=== PATIENT | female | born 1985 | race Caucasian/White ===

== ENCOUNTER 2023-09-01 21:00 | Inpatient (IN) ==
--- NOTE | 2023-09-01 21:20 | Emergency Department Note ---
Impression & Plan Cecal volvulus, Abdominal pain, Leukocytosis ED Provider Note NAME: BERE QUEVEDO AGE: 37 SEX: F : 1985 ARRIVES VIA: Walk-In INFORMANT: Patient ED PROVIDER(S): Tramaine Wright DO CHIEF COMPLAINT: abdominal pain HPI: Patient is a 29-year-old female with a past medical history of MS and constipation who presents the ER for abdominal pain. Pain is located in the left lower quadrant. It started last night and associated with nausea. She has been having some trouble going to the bathroom. Last bowel movement was yesterday but she notes that she feels very regular. She denies any dysuria urgency or frequency. Admits to a history of previous UTIs but notes that this feels different. No fevers. Patient notes that symptoms have been getting worse and consequently she came back in. Additional history obtained from mother and father who notes that the patient did receive antibiotics and a Velásquez from this morning. She also received an enema. ADDITIONAL HISTORY OBTAINED: Per HPI Chronic Medical/Social Conditions Affecting Care: Per HPI PAST MEDICAL HISTORY:See Below PAST SURGICAL HISTORY:See Below FAMILY HISTORY:See Below SOCIAL HISTORY:See Below HOME MEDICATIONS:See Below ALLERGIES:See Below VITALS:See Below PHYSICAL EXAMINATION: GENERAL: Sitting up in bed, alert, cachectic, vomiting EYE EXAM: normal conjunctiva. OROPHARYNX: mucous membranes are moist NECK: supple, no nuchal rigidity, no adenopathy, non-tender LUNGS: Clear to auscultation. Normal chest wall mechanics HEART: no murmurs, S1 normal and S2 normal ABDOMEN: abdomen soft, TTP in LLQ, +BS, +guarding UPPER EXTREMITIES: upper extremities are grossly normal. LOWER EXTREMITIES: No pitting edema. NEURO EXAM: Normal sensorium, cranial nerves II-XII grossly intact, normal speech, no gross weakness of arms, no gross weakness of legs. MEDICAL DECISION MAKING: Patient is a 37 is a 37-year-old female who presents the ER for the above-stated complaint. IV was established blood work was obtained. Blood work was reviewed from earlier today. Patient has guarding and significant pain on exam and consequently she was taking immediately to CT following blood work. Labs show leukocytosis of 27,000 which is significantly increased from earlier today. Hemoglobin is 16 likely secondary to dehydration from the vomiting. BMP along with LFTs bilirubin was unremarkable. Lipase was normal. UA was reviewed from earlier today and although it was nitrite positive there is no white cells. I do not feel this consistent with a UTI. CT does suggest a possible volvulus per radiology. Discussed with gastroenterology and Dr. Jasso. Dr. Jasso notes that he will likely take her to the OR after evaluation at bedside. I did notify Dr. Blanco. Patient was given morphine and Zofran. She is resting comfortably. She was ordered 2 L of IV fluids. Please see the hospitalist and general surgeon's note for further treatment. Consults/Care Managements Discussions: Per [facility] Triage Nursing notes reviewed. Limited review of prior medical records performed Vital Signs: reviewed and remarkable for no significant abnormalities Differential diagnosis: Differential diagnoses includes but is not limited to gastritis, peptic ulcer disease, GERD, gallbladder disease, pancreatitis, small bowel obstruction, appendicitis, diverticulitis, hernia, urinary tract infection, torsion, /ectopic (if female), perforation, trauma, infectious. ER treatment provided: See below Diagnostics interpreted by me include EKG and cardiac monitoring as listed below: -Cardiac Monitoring: An order was placed for continuous cardiac monitoring. The monitor shows a rate of 90 with sinus rhythm. -ECG: none -Laboratory studies:Interpreted by me as stated above in MDM and shown below. Imaging studies: Xrays: As interpreted by me:none CTs show: CT abdomen pelvis per my preliminary interpretation showed distention within the large bowel CT abdomen pelvis per radiology as described above Procedures:none Critical Care: I have personally spent 40 minutes of critical care time in the direct management of this patient. This includes bedside care, interpretation of diagnostic studies, and testing, discussion with consultants, patient, and family members, and other required patient management activities. This 40 minutes is in excess of all separately billable procedures. Past Med/Surg History Medical History Multiple sclerosis PTSD (post-traumatic stress disorder) Anxiety Depression Surgical History Hx of wisdom tooth extraction History of endometrial ablation Hx of tubal ligation Social History Smoking Status: Former smoker Do You Dip or Chew Tobacco: No; Hx Alcohol Use: No Hx Substance Use: No Preferred Language: Surinamese Communication Ability: Effective Personal Care Aid Required: No Beliefs That Will Affect Care: None Current Living Situation: Spouse Feels Safe at Home: Yes Assistive Devices: Cane, Glasses, Walker and Wheelchair Allergies Allergies Allergy/AdvReac Type Severity Reaction Status Date / Time Sulfa (Sulfonamide Allergy Severe Hives Verified 09/01/23 08:20 Antibiotics) gabapentin Allergy Intermediate Hives Verified 09/01/23 08:20 Influenza Virus Vaccines Allergy Intermediate Rash Verified 09/01/23 08:20 Home Meds Home Medications Medication Instructions Recorded Confirmed ascorbic acid (vitamin C) 100 mg 100 mg PO DAILY 09/12/22 09/01/23 tablet (Vitamin C) cholecalciferol (vitamin D3) 100 1,000 unit PO DAILY 09/12/22 09/01/23 mcg (4,000 unit) capsule docusate sodium 100 mg capsule 100 mg PO DAILY 09/12/22 09/01/23 (Colace) meclizine 12.5 mg tablet 12.5 mg PO BID PRN Nausea 09/12/22 09/01/23 zinc 100 mg tablet 100 mg PO DAILY 09/12/22 09/01/23 digestive enzymes 1 tab PO DAILY 08/13/23 09/01/23 magnesium gluconate 27 mg 27 mg PO BID 08/13/23 09/01/23 magnesium (500 mg) tablet (Mag-G) omega-3 fatty acids 1,000 mg 1,000 mg PO DAILY 08/13/23 09/01/23 capsule (Super Gifford-3) Previous Rx's Medication Instructions Recorded mirabegron 50 mg tablet,extended 50 mg PO DAILY #90 tabs 03/27/23 release 24 hr (Myrbetriq) cefdinir 300 mg capsule 300 mg PO Q12H 7 days #14 caps 09/01/23 ondansetron 4 mg disintegrating 4 mg PO Q12H PRN nausea and 09/01/23 tablet vomiting 3 days #9 tabs Results & Data (ED) Vital Signs Vital Signs - 24 hr 09/01/23 21:05 09/01/23 22:10 09/01/23 22:30 Temperature 37.1 C Temperature Source Oral Pulse Rate 91 H 96 H 89 Pulse Rate from SpO2 Sensor 96 H 89 Respiratory Rate 18 17 18 Blood Pressure 121/76 111/51 L 109/65 Blood Pressure Mean 91 71 79 Blood Pressure Position Sitting Pulse Oximetry 97 97 98 Oxygen Delivery Method Room Air Room Air Room Air Sepsis Recent Fever Within 48 Hours Yes Sepsis New/Unexplained Change in Mental Status N/A Sepsis Action Taken by Nursing No Action Required Laboratory Data 09/02/23 13:08 09/02/23 13:08 Lab Results 09/01/23 09/01/23 09/02/23 Range/Units 21:20 22:47 00:00 WBC 27.66 H D (4.8-10.8) K/ul RBC 4.77 (4.20-5.40) M/uL Hgb 16.1 H (12.0-16.0) g/dl Hct 46.3 (37.0-47.0) % MCV 97.1 (80.0-100.0) fL MCH 33.8 (25.0-34.0) pg MCHC 34.8 (32.0-36.0) g/dL RDW Std Deviation 39.4 (36.4-46.3) fL RDW Coeff of Kristy 11.1 L (11.5-14.5) % Plt Count 322 (130-400) K/uL MPV 8.7 L (9.4-12.4) fL Immature Gran % (Auto) 0.9 % Neut % (Auto) 92.7 % Lymph % (Auto) 2.3 % Fallon % (Auto) 3.8 % Eos % (Auto) 0.0 % Baso % (Auto) 0.3 % Neut # (Auto) 25.63 H (1.40-6.50) K/uL Lymph # (Auto) 0.63 L (1.20-3.40) K/uL Fallon # (Auto) 1.06 H (0.11-0.59) K/uL Eos # (Auto) 0.00 (0.00-0.50) K/uL Baso # (Auto) 0.08 (0.00-0.20) K/uL Immature Gran # (Auto) 0.26 H (0.01-0.20) K/uL Sodium 136 (136-145) mmol/L Potassium 4.2 (3.5-5.1) mmol/L Chloride 103 (98-107) mmol/L Carbon Dioxide 25 (21-32) mmol/L Anion Gap 8 (3-11) BUN 20 (6-23) mg/dl Creatinine 0.61 (0.6-1.2) mg/dl Est Cr Clr Drug Dosing Not Reportable Est GFR ( Amer) 133.3 ml/min Est GFR (Non-Af Amer) 115.0 ml/min BUN/Creatinine Ratio 32.8 H (10-20) Glucose 135 H (70-99(Fasting)) mg/dl Estimat Average Glucose 100 mg/dl Hemoglobin A1c 5.1 (4.5-5.6) % Lactate 1.3 (0.4-2.0) mmol/L Calcium 9.6 (8.6-10.3) mg/dl Total Bilirubin 0.8 (0.2-1.0) mg/dl AST 14 (13-39) U/L ALT 12 (7-52) U/L Alkaline Phosphatase 66 (34-104) U/L Troponin I High Sens 4.7 (0-14) pg/ml Total Protein 7.6 (6.0-8.3) gm/dl Albumin 4.4 (3.4-5.0) gm/dl Globulin 3.2 (2.5-4.0) gm/dl Albumin/Globulin Ratio 1.4 (0.9-2) Lipase 27 (11-82) U/L POC Ur Test NEG (NEG) Administered Medications Heparin Sodium (Porcine) (Heparin Sod 5,000 Unit/0.5 Ml Vial) 5,000 units SQ Q8 YOLIS Stop: 10/02/23 13:59 Last Admin: 09/02/23 14:18 Dose: 5,000 units Documented By: ZEKE Piperacillin Sod/Tazobactam (Sod 4.5 gm/ Dextrose) 100 mls @ 25 mls/hr IV Q8H [facility]; Protocol Stop: 09/12/23 05:59 Last Admin: 09/02/23 14:13 Dose: 25 mls/hr Documented By: Infusion: 09/02/23 09:57 Dose: Infused Documented By: Admin: 09/02/23 05:59 Dose: 25 mls/hr Documented By: ZORA Propofol (Diprivan) 1,000 mg in 100 mls @ 5.364 mls/hr IV .[id number] [facility]; Protocol Stop: 09/05/23 03:59 Last Titration: 09/02/23 14:38 Dose: 20 mcg/kg/min, 5.4 mls/hr Documented By: Admin: 09/02/23 14:14 Dose: 25 mcg/kg/min, 6.7 mls/hr Documented By: WS Co-signed By: WRS Titration: 09/02/23 14:14 Dose: Infused Documented By: WS Co-signed By: WRS Titration: 09/02/23 11:20 Dose: 30 mcg/kg/min, 8 mls/hr Documented By: Titration: 09/02/23 07:45 Dose: 25 mcg/kg/min, 6.7 mls/hr Documented By: Titration: 09/02/23 07:05 Dose: 30 mcg/kg/min, 8 mls/hr Documented By: Titration: 09/02/23 06:35 Dose: 30 mcg/kg/min, 8 mls/hr Documented By: Titration: 09/02/23 04:00 Dose: 35 mcg/kg/min, 9.4 mls/hr Documented By: Titration: 09/02/23 03:45 Dose: 30 mcg/kg/min, 8 mls/hr Documented By: Titration: 09/02/23 03:30 Dose: 25 mcg/kg/min, 6.7 mls/hr Documented By: Admin: 09/02/23 03:20 Dose: 20 mcg/kg/min, 5.4 mls/hr Documented By: SG Co-signed By: CLC Fentanyl Citrate (Fentanyl Citrate) 2,500 mcg in 250 mls @ 12.5 mls/hr IV .Q20H YOLIS; Protocol Stop: 09/16/23 03:59 Last Titration: 09/02/23 14:38 Dose: 125 mcg/hr, 12.5 mls/hr Documented By: JAVIER Co-signed By: LAF Titration: 09/02/23 10:47 Dose: 100 mcg/hr, 10 mls/hr Documented By: WRS Co-signed By: LAF Titration: 09/02/23 07:05 Dose: 75 mcg/hr, 7.5 mls/hr Documented By: WS Co-signed By: SG Titration: 09/02/23 05:30 Dose: 75 mcg/hr, 7.5 mls/hr Documented By: SG Co-signed By: DORETHA Titration: 09/02/23 04:30 Dose: 50 mcg/hr, 5 mls/hr Documented By: ZORA Co-signed By: CLC Admin: 09/02/23 03:20 Dose: 25 mcg/hr, 2.5 mls/hr Documented By: ZORA Co-signed By: CLC Parenteral Electrolytes (Plasma-Lyte A Ph 7.4) 1,000 mls @ 80 mls/hr IV .[id number] YOLIS Stop: 10/02/23 03:59 Last Admin: 09/02/23 15:10 Dose: 80 mls/hr Documented By: Infusion: 09/02/23 15:10 Dose: Infused Documented By: Admin: 09/02/23 04:38 Dose: 80 mls/hr Documented By: ZORA Pantoprazole Sodium 40 mg/ (Syringe) 10 mls @ 5 mls/min IV DAILY@1100 YOLIS Stop: 10/02/23 10:59 Last Admin: 09/02/23 10:26 Dose: 5 mls/min Documented By: ZEKE Hydrocortisone Sodium (Succinate 50 mg/ Syringe) 1 mls @ 4 mls/min IV Q6H YOLIS Stop: 10/02/23 12:29 Last Admin: 09/02/23 12:57 Dose: 4 mls/min Documented By: ZEKE Potassium Chloride (K Johan / Wtr) 10 meq in 100 mls @ 100 mls/hr IV Q1H YOLIS Stop: 09/02/23 16:14 Last Infusion: 09/02/23 16:13 Dose: Infused Documented By: Admin: 09/02/23 15:09 Dose: 100 mls/hr Documented By: Infusion: 09/02/23 15:09 Dose: Infused Documented By: Admin: 09/02/23 14:13 Dose: 100 mls/hr Documented By: ZEKE Miscellhang (Icu Electrolyte Replacement Protocol) 1 each N/A BID@06,18 YOLIS; Protocol Stop: 09/09/23 17:59 Last Admin: 09/02/23 14:02 Dose: 1 each Documented By: JAVIER Oropeza (Icu Protocol For Hyperglycemia) 1 each N/A Q6 YOLIS Stop: 09/04/23 07:29 Last Admin: 09/02/23 12:19 Dose: Not Given Documented By: JAVIER Discontinued Medications Fentanyl Citrate (Fentanyl Citrate 2,500 Mcg/250 Ml Bag) Confirm Administered Dose 2,500 mcg IV .STK-MED ONE Stop: 09/02/23 03:08 Last Admin: 09/02/23 04:36 Dose: Not Given Documented By: ZORA Sodium Chloride (Nss) 1,000 mls @ 999 mls/hr IV .Q1H1M YOLIS Stop: 09/01/23 23:30 Last Infusion: 09/01/23 23:42 Dose: Infused Documented By: Admin: 09/01/23 22:35 Dose: 999 mls/hr Documented By: Infusion: 09/01/23 22:27 Dose: Infused Documented By: Admin: 09/01/23 21:26 Dose: 999 mls/hr Documented By: FAY Sodium Chloride (Nss) 1,000 mls @ 999 mls/hr IV .Q1H1M ONE Stop: 09/01/23 23:37 Last Admin: 09/02/23 04:35 Dose: Not Given Documented By: ZORA Piperacillin Sod/Tazobactam Sod (Zosyn) 4.5 gm in 100 mls @ 200 mls/hr IV NOW ONE Stop: 09/01/23 23:15 Last Infusion: 09/01/23 23:43 Dose: Infused Documented By: Admin: 09/01/23 23:12 Dose: 200 mls/hr Documented By: SIOMARA Lorazepam 0.25 mg/ Syringe 0.25 mls @ 2 mls/min IV NOW STA Stop: 09/01/23 23:32 Last Admin: 09/02/23 00:23 Dose: 2 mls/min Documented By: ANNY Sodium Chloride (Nss) 1,000 mls @ 100 mls/hr IV .Q10H [facility] Stop: 10/02/23 03:14 Last Admin: 09/02/23 04:36 Dose: Not Given Documented By: ZORA Magnesium Sulfate/Dextrose (Magnesium Sulfate / D5w) 1 gm in 100 mls @ 50 mls/hr IV ONE ONE Stop: 09/02/23 08:37 Last Infusion: 09/02/23 09:01 Dose: Infused Documented By: Admin: 09/02/23 06:49 Dose: 50 mls/hr Documented By: ZORA Lactated Ringer's (Lr) 2,000 mls @ 999 mls/hr IV .Q2H1M ONE Stop: 09/02/23 11:08 Last Infusion: 09/02/23 11:21 Dose: Infused Documented By: Admin: 09/02/23 09:19 Dose: 999 mls/hr Documented By: ZEKE Ioversol (Optiray 320 100ml) 92 ml IV ONCE ONE Stop: 09/01/23 21:55 Last Admin: 09/01/23 21:54 Dose: 92 ml Documented By: KALIE Ketorolac Tromethamine (Ketorolac Tromethamine 15 Mg/Ml Vial) 15 mg IV NOW ONE Stop: 09/01/23 21:17 Last Admin: 09/01/23 21:26 Dose: 15 mg Documented By: FAY Ketorolac Tromethamine (Ketorolac Tromethamine 15 Mg/Ml Vial) 15 mg IV NOW STA Stop: 09/01/23 23:31 Last Admin: 09/02/23 04:35 Dose: Not Given Documented By: ZORA Metoclopramide HCl (Metoclopramide Hcl Inj 5 Mg/Ml 2 Ml Vial) 10 mg IV NOW STA Stop: 09/01/23 21:45 Last Admin: 09/01/23 21:47 Dose: 10 mg Documented By: FAY Miscellaneous (Icu Protocol For Hyperglycemia) 1 each N/A ACHS YOLIS Stop: 09/04/23 07:29 Last Admin: 09/02/23 07:46 Dose: 1 each Documented By: ZEKE Morphine Sulfate (Morphine Sulfate 4 Mg/Ml 1 Ml Carp\Vial) 4 mg IV NOW STA Stop: 09/01/23 22:19 Last Admin: 09/01/23 23:37 Dose: 4 mg Documented By: SIOMARA Ondansetron HCl (Ondansetron Inj 2 Mg/Ml 2 Ml Vial) 4 mg IV NOW STA Stop: 09/01/23 21:17 Last Admin: 09/01/23 21:27 Dose: 4 mg Documented By: FAY Propofol (Propofol Iv Emulsion 10 Mg/Ml 100 Ml Vial) Confirm Administered Dose 1,000 mg IV .STK-MED ONE Stop: 09/02/23 03:08 Last Admin: 09/02/23 04:36 Dose: Not Given Documented By: ZORA Imaging Data Radiologist's Impression: Chest X-Ray 09/01/23 23:27 XR chest 1V portable CLINICAL HISTORY: intubation TECHNIQUE: Single frontal radiograph of the chest was obtained. Comparison: Comparison is made to chest radiograph 09/01/2013 FINDINGS: There is an endotracheal tube terminating 48 mm from the letitia, and enteric tube with the tip just slightly past the lower esophageal segment. The cardiomediastinal silhouette is normal. The lungs are clear. No evidence of pleural effusion or pneumothorax. IMPRESSION: Endotracheal tube is in satisfactory position. Enteric tube can be advanced approximately 3 cm for improved positioning. ACT 112: Negative or not required by law. Electronically signed by: Lam Monreal M.D. 09/02/2023 8:16 AM Discharge Plan Visit Data Chief Complaint: Illness Stated Complaint: SX GETTING WORSE ED Provider: Tramaine Wright Discharge Problem: Cecal volvulus, Abdominal pain, Leukocytosis Patient Disposition: Admitted As Inpatient Discharge Instructions Interventions: ED Discharge Assessment Last Done: 09/02/23 00:16 Discharge Problem: Abdominal pain Qualifiers: Abdominal location: unspecified location Qualified Code(s): R10.9 - Unspecified abdominal pain Leukocytosis Qualifiers: Leukocytosis type: unspecified Qualified Code(s): D72.829 - Elevated white blood cell count, unspecified
[2023-09-01] MEDS: SODIUM CHLORIDE 0.9% 1,000 ML IV SCH (21:26)
[2023-09-01] MEDS: KETOROLAC TROMETHAMINE 15 MG/ML VIAL IV ONE (21:26)
[2023-09-01] MEDS: ONDANSETRON INJ 2 MG/ML 2 ML VIAL IV STA (21:27)
[2023-09-01] MEDS: METOCLOPRAMIDE HCL INJ 5 MG/ML 2 ML VIAL IV STA (21:47)
[2023-09-01 21:49] LABS: Alanine Aminotransferase 12 U/L (7-52); Albumin Globulin Ratio 1.4 (0.9-2); Albumin Level 4.4 gm/dl (3.4-5.0); Alkaline Phosphatase 66 U/L (34-104); Anion Gap 8 (3-11); Aspartate Aminotransferase 14 U/L (13-39); BUN Creatinine Ratio 32.8 (10-20); Bilirubin,Total 0.8 mg/dl (0.2-1.0); Blood Urea Nitrogen 20 mg/dl (6-23); Calcium 9.6 mg/dl (8.6-10.3); Carbon Dioxide 25 mmol/L (21-32); Chloride 103 mmol/L (98-107); Est GFR (African American) 133.3 ml/min; Globulin 3.2 gm/dl (2.5-4.0); Glucose 135 mg/dl (70-99(Fasting)); Lipase 27 U/L (11-82); Potassium 4.2 mmol/L (3.5-5.1); Sodium 136 mmol/L (136-145); Total Protein 7.6 gm/dl (6.0-8.3)
[2023-09-01] MEDS: OPTIRAY 320 100ml IV ONE (21:54)
[2023-09-01 22:00] LABS: Hematocrit (blood only) 46.3 % (37.0-47.0); Hemoglobin 16.1 g/dl (12.0-16.0); Mean Corpuscular Hemoglobin 33.8 pg (25.0-34.0); Mean Corpuscular Hgb Conc 34.8 g/dL (32.0-36.0); Mean Corpuscular Volume 97.1 fL (80.0-100.0); Mean Platelet Volume 8.7 fL (9.4-12.4); Platelet Count 322 K/uL (130-400); RDW Coefficient of Variation 11.1 % (11.5-14.5); RDW Standard Deviation 39.4 fL (36.4-46.3); Red Blood Count 4.77 M/uL (4.20-5.40); White Blood Count 27.66 K/ul (4.8-10.8)
[2023-09-01 22:29] LABS: Basophils # (auto) 0.08 K/uL (0.00-0.20); Basophils % (auto) 0.3 %; Immature Granulocytes # (auto) 0.26 K/uL (0.01-0.20); Immature Granulocytes % (auto) 0.9 %; Lymphocytes # (auto) 0.63 K/uL (1.20-3.40); Lymphocytes % (auto) 2.3 %; Monocytes # (auto) 1.06 K/uL (0.11-0.59); Monocytes % (auto) 3.8 %; Neutrophils # (auto) 25.63 K/uL (1.40-6.50); Neutrophils % (auto) 92.7 %
--- NOTE | 2023-09-01 22:33 | CT Scan Report ---
CT SCAN OF THE ABDOMEN AND PELVIS WITH IV CONTRAST CLINICAL HISTORY: Generalized abdominal pain. COMPARISON STUDY: Abdominal radiograph dated 09/01/2023. TECHNIQUE: Following the IV administration of 92 cc of Optiray 320, CT scan of the abdomen and pelvi s is performed from the lung bases to the proximal femora. Images are reviewed in the axial, sagittal , and coronal planes. IV contrast was administered without complication. A dose lowering technique wa s utilized adhering to the principles of ALARA. CT DOSE: 288.46 mGy.cm FINDINGS: Lung bases: The heart is normal in size and without pericardial effusion. The lung bases are clear. Liver: The contrast-enhanced liver is normal in size, contour, and attenuation. There is no intrahepa tic biliary ductal dilatation. The hepatic veins and portal veins are patent. Gallbladder: Unremarkable. Spleen: Normal in size and attenuation. Pancreas: Unremarkable. Adrenal glands: Unremarkable. Kidneys: The contrast enhanced kidneys are normal in size and without hydronephrosis. The kidneys enh ance symmetrically. There is a circumaortic left renal vein. Abdominal vasculature: The abdominal aorta is normal in course and caliber. Bowel: The cecum is distended measuring up to 9 cm in diameter. There is moderate fecal retention in the right colon, with apparent twisting of the ascending colon. There are mildly distended and fluid- filled loops of small bowel. There is no pneumatosis intestinalis or portal venous gas. No significan tly thick-walled bowel loops are identified. No high-grade bowel obstruction is seen. The appendix is not visualized. Peritoneum: There is trace free fluid in the right lower quadrant. No intraperitoneal free air is michael ntified. Lymphadenopathy: None. Pelvic viscera: The bladder is decompressed and a Velásquez catheter and not well evaluated. The uterus i s normal as visualized. There is a 6.2 cm cystic focus in the left adnexa seen on image 215. This is likely related to the left ovary. Skeletal structures: No lytic or blastic lesions are seen. IMPRESSION: 1. The cecum is significantly distended and filled with fluid/stool. 2. There is moderate fecal retention in the right colon, with apparent twisting of the ascending colo n. A volvulus or obstruction of the right colon is not excluded. Clinical correlation will be shira love. 3. There are mildly distended an fluid-filled loops of small bowel without CT evidence of high-grade obstruction. Again, this should be correlated clinically. 4. There is a 6.2 cm cystic focus in the left adnexa, likely related to the left ovary. 5. Additional findings as above. ACT 112: Negative or not required by law. Electronically signed by: Andrés Olsen M.D. 09/01/2023 10:30 PM
[2023-09-01] MEDS: PIPERACILLIN/TAZOBACTAM 4.5 GM/100 ML BAG IV ONE (23:12)
[2023-09-01] MEDS ORDERED: MoRPHine SULFATE 2 MG/ML CARP IV PRN (23:15)
[2023-09-01] MEDS ORDERED: MoRPHine SULFATE 4 MG/ML 1 ML CARP\\VIAL IV PRN (23:15)
[2023-09-01] MEDS ORDERED: LORazepam 0.25 MG in SYRINGE 0.125 ML IV PRN (23:33)
[2023-09-01] MEDS ORDERED: PROMETHAZINE HCL 6.25 MG in SODIUM CHLORIDE 0.9% 50 ML IV PRN (23:33)
[2023-09-01] MEDS ORDERED: KETOROLAC TROMETHAMINE 15 MG/ML VIAL IV PRN (23:35)
[2023-09-01] MEDS: MoRPHine SULFATE 4 MG/ML 1 ML CARP\\VIAL IV STA (23:37)
--- NOTE | 2023-09-01 23:41 | History & Physical Report ---
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 Jasso who recommends emergent surgery and postop ICU monitoring.) Continue Zosyn for possible incipient bowel sepsis given marked leukocytosis. Inpatient pelvic ultrasound for left adnexal cyst as per patient/family request owing to transport concerns if study was to be done outpatient Gynecology consult contingent on pelvic ultrasound results Outpatient follow-up with [facility] neurologist given PPMS Check hemoglobin A1c DVT prophylaxis. SCDs for now Recommend pharmacologic anticoagulation with Lovenox 30 mg subcutaneous daily once bleeding risk is deemed to be minimal and negligible from surgical standpoint. Patient mother requesting updates providers. Ms. Audra Buchanan, contact #[phone]. Text document was generated using [employer] voice recognition software. It may contain grammatical or spelling errors. Kindly contact undersigned for clarification of any documentation item in question. History of Present Illness Chief Complaint: Worsening abdominal pain Primary Care Provider: Tal Thomas MD History obtained from patient, family, and records. Medical history significant for multiple sclerosis, migraine, hyperlipidemia, PTSD, mood disorder, endometriosis status post surgery, past tobacco abuse. Last night, patient noted achy lower abdominal pain with constipation and decreased urine output symptoms. Some nausea, no fever, no chills. Patient consulted [facility] ER this morning. Plain x-ray of the abdomen showed moderate stool burden without evidence of impaction. Nitrite positive urine noted. Patient discharged on cefdinir course for UTI. Worsening abdominal discomfort and distention at home with subsequent emesis. Chest pain and shortness of breath from abdominal pain as per patient. Patient returned to ER with family. IV Zosyn administered at the ER. Medical History as above Surgical History : Hysteroscopy, endometrial ablation, IUD removal Family History : Asthma, breast cancer, colon cancer, DM, lung cancer, Tourette syndrome, Parkinson's disease, stroke Personal/Social history : Past tobacco abuse, rare EtOH intake, disabled from electrocution injury Allergies Allergy/AdvReac Type Severity Reaction Status Date / Time Sulfa (Sulfonamide Allergy Severe Hives Verified 09/01/23 08:20 Antibiotics) gabapentin Allergy Intermediate Hives Verified 09/01/23 08:20 Influenza Virus Vaccines Allergy Intermediate Rash Verified 09/01/23 08:20 Home Medications Medication Instructions Recorded Confirmed Type ascorbic acid (vitamin C) 100 mg 100 mg PO DAILY 09/12/22 09/01/23 History tablet (Vitamin C) cholecalciferol (vitamin D3) 100 1,000 unit PO DAILY 09/12/22 09/01/23 History mcg (4,000 unit) capsule docusate sodium 100 mg capsule 100 mg PO DAILY 09/12/22 09/01/23 History (Colace) meclizine 12.5 mg tablet 12.5 mg PO BID PRN Nausea 09/12/22 09/01/23 History zinc 100 mg tablet 100 mg PO DAILY 09/12/22 09/01/23 History mirabegron 50 mg tablet,extended 50 mg PO DAILY #90 tabs 03/27/23 09/01/23 Rx release 24 hr (Myrbetriq) digestive enzymes 1 tab PO DAILY 08/13/23 09/01/23 History magnesium gluconate 27 mg 27 mg PO BID 08/13/23 09/01/23 History magnesium (500 mg) tablet (Mag-G) omega-3 fatty acids 1,000 mg 1,000 mg PO DAILY 08/13/23 09/01/23 History capsule (Super [place]-3) cefdinir 300 mg capsule 300 mg PO Q12H 7 days #14 caps 09/01/23 09/01/23 Rx ondansetron 4 mg disintegrating 4 mg PO Q12H PRN nausea and 09/01/23 09/01/23 Rx tablet vomiting 3 days #9 tabs Past Med/Surg History Medical History Multiple sclerosis PTSD (post-traumatic stress disorder) Anxiety Depression Surgical History Hx of wisdom tooth extraction History of endometrial ablation Hx of tubal ligation Social History Smoking Status: Never smoker Do You Dip or Chew Tobacco: No; Hx Alcohol Use: No Hx Substance Use: No Preferred Language: Macedonian Communication Ability: Effective International Student Counselor Required: No Beliefs That Will Affect Care: None Current Living Situation: Spouse Feels Safe at Home: Yes Assistive Devices: Cane, Glasses and Wheelchair Review of Systems Review of Systems: As per HPI, all other systems reviewed and negative Physical Exam Physical Exam: GENERAL: uncomfortable, anxious, tremulous, no respiratory distress SKIN: Normal color, warm HEENT: Bespectacled, Musella palpebral conjunctivae, no ptosis, dry buccal mucosa NECK : Supple, no tenderness CHEST : Decreased breath sounds, no tenderness HEART : RRR, no obvious murmurs ABDOMEN: Marked distention with right-sided abdominal tenderness EXTREMITIES : No LE swelling/tenderness, no other conspicuous deformities noted NEUROLOGIC : Coherent, no facial asymmetry, resting hand tremors, gait and stance not assessed Results & Data Results & Data Vital Signs (Past 12 Hours) Vital Signs Temp Pulse Resp BP Pulse Ox O2 Del Method 09/01/23 22:30 89 18 109/65 98 Room Air 09/01/23 22:10 96 H 17 111/51 L 97 Room Air 09/01/23 21:05 37.1 C 91 H 18 121/76 97 Room Air Laboratory Results Laboratory Results WBC 27.66 K/ul (4.8-10.8) H D 09/01/23 21:20 RBC 4.77 M/uL (4.20-5.40) 09/01/23 21:20 Hgb 16.1 g/dl (12.0-16.0) H 09/01/23 21:20 Hct 46.3 % (37.0-47.0) 09/01/23 21:20 MCV 97.1 fL (80.0-100.0) 09/01/23 21:20 MCH 33.8 pg (25.0-34.0) 09/01/23 21:20 MCHC 34.8 g/dL (32.0-36.0) 09/01/23 21:20 RDW Std Deviation 39.4 fL (36.4-46.3) 09/01/23 21:20 RDW Coeff of Kristy 11.1 % (11.5-14.5) L 09/01/23 21:20 Plt Count 322 K/uL (130-400) 09/01/23 21:20 MPV 8.7 fL (9.4-12.4) L 09/01/23 21:20 Immature Gran % (Auto) 0.9 % 09/01/23 21:20 Neut % (Auto) 92.7 % 09/01/23 21:20 Lymph % (Auto) 2.3 % 09/01/23 21:20 Carter % (Auto) 3.8 % 09/01/23 21:20 Eos % (Auto) 0.0 % 09/01/23 21:20 Baso % (Auto) 0.3 % 09/01/23 21:20 Neut # (Auto) 25.63 K/uL (1.40-6.50) H 09/01/23 21:20 Lymph # (Auto) 0.63 K/uL (1.20-3.40) L 09/01/23 21:20 Carter # (Auto) 1.06 K/uL (0.11-0.59) H 09/01/23 21:20 Eos # (Auto) 0.00 K/uL (0.00-0.50) 09/01/23 21:20 Baso # (Auto) 0.08 K/uL (0.00-0.20) 09/01/23 21:20 Immature Gran # (Auto) 0.26 K/uL (0.01-0.20) H 09/01/23 21:20 Sodium 136 mmol/L (136-145) 09/01/23 21:20 Potassium 4.2 mmol/L (3.5-5.1) 09/01/23 21:20 Chloride 103 mmol/L (98-107) 09/01/23 21:20 Carbon Dioxide 25 mmol/L (21-32) 09/01/23 21:20 Anion Gap 8 (3-11) 09/01/23 21:20 BUN 20 mg/dl (6-23) 09/01/23 21:20 Creatinine 0.61 mg/dl (0.6-1.2) 09/01/23 21:20 Est Cr Clr Drug Dosing Not Reportable 09/01/23 21:20 Est GFR ( Amer) 133.3 ml/min 09/01/23 21:20 Est GFR (Non-Af Amer) 115.0 ml/min 09/01/23 21:20 BUN/Creatinine Ratio 32.8 (10-20) H 09/01/23 21:20 Glucose 135 mg/dl (70-99(Fasting)) H 09/01/23 21:20 Lactate 1.3 mmol/L (0.4-2.0) 09/01/23 22:47 Calcium 9.6 mg/dl (8.6-10.3) 09/01/23 21:20 Total Bilirubin 0.8 mg/dl (0.2-1.0) 09/01/23 21:20 AST 14 U/L (13-39) 09/01/23 21:20 ALT 12 U/L (7-52) 09/01/23 21:20 Alkaline Phosphatase 66 U/L (34-104) 09/01/23 21:20 Total Protein 7.6 gm/dl (6.0-8.3) 09/01/23 21:20 Albumin 4.4 gm/dl (3.4-5.0) 09/01/23 21:20 Globulin 3.2 gm/dl (2.5-4.0) 09/01/23 21:20 Albumin/Globulin Ratio 1.4 (0.9-2) 09/01/23 21:20 Lipase 27 U/L (11-82) 09/01/23 21:20 Impressions Abdomen/Pelvis CT 09/01/23 21:08 CT SCAN OF THE ABDOMEN AND PELVIS WITH IV CONTRAST CLINICAL HISTORY: Generalized abdominal pain. COMPARISON STUDY: Abdominal radiograph dated 09/01/2023. TECHNIQUE: Following the IV administration of 92 cc of Optiray 320, CT scan of the abdomen and pelvis is performed from the lung bases to the proximal femora. Images are reviewed in the axial, sagittal, and coronal planes. IV contrast was administered without complication. A dose lowering technique was utilized adhering to the principles of ALARA. CT DOSE: 288.46 mGy.cm FINDINGS: Lung bases: The heart is normal in size and without pericardial effusion. The lung bases are clear. Liver: The contrast-enhanced liver is normal in size, contour, and attenuation. There is no intrahepatic biliary ductal dilatation. The hepatic veins and portal veins are patent. Gallbladder: Unremarkable. Spleen: Normal in size and attenuation. Pancreas: Unremarkable. Adrenal glands: Unremarkable. Kidneys: The contrast enhanced kidneys are normal in size and without hydronephrosis. The kidneys enhance symmetrically. There is a circumaortic left renal vein. Abdominal vasculature: The abdominal aorta is normal in course and caliber. Bowel: The cecum is distended measuring up to 9 cm in diameter. There is moderate fecal retention in the right colon, with apparent twisting of the ascending colon. There are mildly distended and fluid-filled loops of small bowel. There is no pneumatosis intestinalis or portal venous gas. No significantly thick-walled bowel loops are identified. No high-grade bowel obstruction is seen. The appendix is not visualized. Peritoneum: There is trace free fluid in the right lower quadrant. No intraperitoneal free air is identified. Lymphadenopathy: None. Pelvic viscera: The bladder is decompressed and a Velásquez catheter and not well evaluated. The uterus is normal as visualized. There is a 6.2 cm cystic focus in the left adnexa seen on image 215. This is likely related to the left ovary. Skeletal structures: No lytic or blastic lesions are seen. IMPRESSION: 1. The cecum is significantly distended and filled with fluid/stool. 2. There is moderate fecal retention in the right colon, with apparent twisting of the ascending colon. A volvulus or obstruction of the right colon is not excluded. Clinical correlation will be essential. 3. There are mildly distended an fluid-filled loops of small bowel without CT evidence of high-grade obstruction. Again, this should be correlated clinically. 4. There is a 6.2 cm cystic focus in the left adnexa, likely related to the left ovary. 5. Additional findings as above. ACT 112: Negative or not required by law. Electronically signed by: Andrés Olsen M.D. 09/01/2023 10:30 PM Diagnostic Findings EKG as per my interpretation : Rate 85, NSR, incomplete RBBB, nonspecific T wave abnormalities Code Status & VTE Plan VTE Prophylaxis Plan VTE Prophylaxis will be ordered: Yes
[2023-09-02 00:01] LABS: Troponin I High Sensitivity 4.7 pg/ml (0-14)
--- NOTE | 2023-09-02 00:03 | Surgery Consultation ---
Date of Consultation September 01, 2023 Assessment & Plan (1) Cecal volvulus: Her CT results and images were personally viewed and interpreted by myself She has a cecal/ascending colon volvulus which causes a closed loop obstruction She has been admitted to medicine, will go to ICU post-operatively Will plan on emergent exploratory laparotomy, possible bowel resection, possible ostomy, possible ABthera wound vac placement Consent was obtained, risks discussed including bleeding, infection, injury to surrounding structures, anastomotic leak (2) Multiple sclerosis: History of Present Illness Reason for Consultation: Cecal Volvulus History of Present Illness This is a 37 yo female with a history of MS who presented to the ER today with 24 hours of abdominal pain, sharp in nature. The pain is in the lower abdomen without radiation. No aggravating or relieving factors. She has been nauseated but no emesis. Denies any fever or chills. Denies any previous abdominal surgeries. Allergies Allergy/AdvReac Type Severity Reaction Status Date / Time Sulfa (Sulfonamide Allergy Severe Hives Verified 09/01/23 08:20 Antibiotics) gabapentin Allergy Intermediate Hives Verified 09/01/23 08:20 Influenza Virus Vaccines Allergy Intermediate Rash Verified 09/01/23 08:20 Home Medications Medication Instructions Recorded Confirmed Type ascorbic acid (vitamin C) 100 mg 100 mg PO DAILY 09/12/22 09/01/23 History tablet (Vitamin C) cholecalciferol (vitamin D3) 100 1,000 unit PO DAILY 09/12/22 09/01/23 History mcg (4,000 unit) capsule docusate sodium 100 mg capsule 100 mg PO DAILY 09/12/22 09/01/23 History (Colace) meclizine 12.5 mg tablet 12.5 mg PO BID PRN Nausea 09/12/22 09/01/23 History zinc 100 mg tablet 100 mg PO DAILY 09/12/22 09/01/23 History mirabegron 50 mg tablet,extended 50 mg PO DAILY #90 tabs 03/27/23 09/01/23 Rx release 24 hr (Myrbetriq) digestive enzymes 1 tab PO DAILY 08/13/23 09/01/23 History magnesium gluconate 27 mg 27 mg PO BID 08/13/23 09/01/23 History magnesium (500 mg) tablet (Mag-G) omega-3 fatty acids 1,000 mg 1,000 mg PO DAILY 08/13/23 09/01/23 History capsule (Super [place]-3) cefdinir 300 mg capsule 300 mg PO Q12H 7 days #14 caps 09/01/23 09/01/23 Rx ondansetron 4 mg disintegrating 4 mg PO Q12H PRN nausea and 09/01/23 09/01/23 Rx tablet vomiting 3 days #9 tabs Patient History Medical History Multiple sclerosis PTSD (post-traumatic stress disorder) Anxiety Depression Surgical History Hx of wisdom tooth extraction History of endometrial ablation Hx of tubal ligation Social History Smoking Status: Never smoker Do You Dip or Chew Tobacco: No; Hx Alcohol Use: No Hx Substance Use: No Preferred Language: Czech Communication Ability: Effective Lime Vat Tender Required: No Beliefs That Will Affect Care: None Current Living Situation: Spouse Feels Safe at Home: Yes Assistive Devices: Cane, Glasses and Wheelchair Review of Systems Constitutional: no fever and no chills Eyes: no blind spots and no worsening vision Ear, Nose, Mouth, Throat: no ear pain and no hearing loss Respiratory: no cough and no dyspnea Cardiovascular: no chest pain and no dyspnea on exertion Gastrointestinal: + abdominal pain and + nausea; no vomiti ng, no change in stools and no constipation Genitourinary: no dysuria and no urinary urgency Musculoskeletal: no back pain and no neck pain Integumentary: no acne, no skin ulcer and no erythema Neurologic: + gait abnormality and + problem reporte d (MS); no headache(s) Psychiatric: no behavioral changes and no depression Hematologic / Lymphatic: no easy bleeding and no easy bruising Physical Exam Constitutional: WD/WN, vitals as above Eyes: PERRL, conjunctivae normal, anicteric sclerae ENMT: external ear and nose normal, oropharynx normal Neck: trachea midline, no thyromegaly Respiratory: normal respiratory effort, lungs clear to auscultation Cardiovascular: RRR, no murmur, no edema Gastrointestinal (Abdomen): Inspection/Auscultation: + abdomen distended; + abdomen abnormal to inspection Percussion/Palpation: + abdomen tender (generalized), + guarding, + abdomen rigid and abdomen soft Musculoskeletal: no cyanosis or clubbing, extremities motor strength 5/5 Skin: no rashes, warm and dry Neurologic: PERRL, EOMI, accommodation nl, no face palsy, no dysarthria Psychiatric: A+Ox3, euthymic affect Results & Data Vital Signs (Past 12 Hours) Vital Signs Temp Pulse Resp BP Pulse Ox O2 Del Method 09/01/23 22:30 89 18 109/65 98 Room Air 09/01/23 22:10 96 H 17 111/51 L 97 Room Air 09/01/23 21:05 37.1 C 91 H 18 121/76 97 Room Air PG Care Time/CCT Total # of Minutes Spent Total Time Spent with Patient: Total time spent is greater than 50% in coordination of care (as documented) at patient's floor/unit and/or counseling patient: Coding Level of Care Code 72352 IN/OBS CONSULT LVL 5,80M Diagnoses Cecal volvulus K56.2 Multiple sclerosis G35
--- NOTE | 2023-09-02 00:17 | Anesthesiology Consultation ---
Date of Service September 02, 2023 Assessment & Plan Chart Review Chart Review: Acceptable Risk for Surgery and Patient NOT seen in Pre Admission Testing Consults Requested none ASA [id number] Proposed Anesthesia Anesthesia Type: General Risk / Benefits Reviewed With: PT / POA / Parent / Guardian, Accepts Plan and Informed Consent Obtained History Surgery Operation Date: 09/01/23 23:35 Proposed Procedures p Exploratory Laparotomy - Torres Jasso DO s Bowel Resection - Torres Jasso DO Height/Weight Height: 5 ft 6 in Allergies Allergy/AdvReac Type Severity Reaction Status Date / Time Sulfa (Sulfonamide Allergy Severe Hives Verified 09/01/23 08:20 Antibiotics) gabapentin Allergy Intermediate Hives Verified 09/01/23 08:20 Influenza Virus Vaccines Allergy Intermediate Rash Verified 09/01/23 08:20 Medications Home Medications Medication Instructions Recorded Confirmed Last Taken ascorbic acid (vitamin C) 100 mg 100 mg PO DAILY 09/12/22 09/01/23 Unknown tablet (Vitamin C) cholecalciferol (vitamin D3) 100 1,000 unit PO DAILY 09/12/22 09/01/23 Unknown mcg (4,000 unit) capsule docusate sodium 100 mg capsule 100 mg PO DAILY 09/12/22 09/01/23 Unknown (Colace) meclizine 12.5 mg tablet 12.5 mg PO BID PRN Nausea 09/12/22 09/01/23 Unknown zinc 100 mg tablet 100 mg PO DAILY 09/12/22 09/01/23 Unknown mirabegron 50 mg tablet,extended 50 mg PO DAILY #90 tabs 03/27/23 09/01/23 Unknown release 24 hr (Myrbetriq) digestive enzymes 1 tab PO DAILY 08/13/23 09/01/23 Unknown magnesium gluconate 27 mg 27 mg PO BID 08/13/23 09/01/23 Unknown magnesium (500 mg) tablet (Mag-G) omega-3 fatty acids 1,000 mg 1,000 mg PO DAILY 08/13/23 09/01/23 Unknown capsule (Super [place]-3) cefdinir 300 mg capsule 300 mg PO Q12H 7 days #14 caps 09/01/23 09/01/23 09/01/23 18:30 ondansetron 4 mg disintegrating 4 mg PO Q12H PRN nausea and 09/01/23 09/01/23 09/01/23 18:30 tablet vomiting 3 days #9 tabs Past Medical History Medical History Multiple sclerosis PTSD (post-traumatic stress disorder) Anxiety Depression Exercise / Class Metabolic Activity II 4-5 Yardwork/Stairs/Walk up hill Past Surgical History Surgical History Hx of wisdom tooth extraction History of endometrial ablation Hx of tubal ligation Past Anesthesia History No Hx of Anesthesia Complications and No Family Hx of Anesthesia Complications History of PONV No Hx of PONV and No Hx of Motion Sickness Social History Smoking Status: Never smoker tobacco type: e-cigarettes Do You Dip or Chew Tobacco: No Hx Alcohol Use: No Hx Substance Use: No Physical Exam Vital Signs Last Vital Signs Temp 37.1 C 09/01/23 21:05 Pulse 89 09/01/23 22:30 Resp 18 09/01/23 22:30 BP 109/65 09/01/23 22:30 Pulse Ox 98 09/01/23 22:30 O2 Del Method Room Air 09/01/23 22:30 ENMT Mouth: + small oral opening; no dentition abnormality Thyromental Distance: > or= 3.5 Finger Breadths Mallampati Class: II Neck normal visual inspection Respiratory normal respiratory effort Auscultation: lungs clear to auscultation bilaterally Cardiovascular Rate/Rhythm: regular rate and regular rhythm Musculoskeletal Extremities: extremities normal to inspection muscle wasting bilateral lower extremities Psychiatric Orientation: alert Testing Laboratory Results 09/01/23 21:20 09/01/23 21:20
[2023-09-02] MEDS: LORazepam 0.25 MG in SYRINGE 0.125 ML IV STA (00:23)
[2023-09-02] MEDS ORDERED: LIDOCAINE 2% 2 ML VIAL/AMP(20MG/ML) INFIL ONE (00:31)
[2023-09-02] MEDS ORDERED: PROPOFOL IV EMULSION 10 MG/ML 20 ML VIAL IV ONE ×2 (00:31→01:22)
[2023-09-02] MEDS ORDERED: ROCURONIUM BROMIDE 10 MG/ML 5 ML VIAL IV ONE (00:31)
[2023-09-02] MEDS ORDERED: fentaNYL citrate PF 100 MCG/2 ML VIAL ONE (00:31)
[2023-09-02] MEDS ORDERED: DEXAMETHASONE SOD INJ 4 MG/ML VIAL ONE (01:22)
[2023-09-02] MEDS ORDERED: HYDROmorphone INJ 1 MG/ML SYRINGE ONE (01:35)
--- NOTE | 2023-09-02 03:05 | Post Operative Brief Note ---
PG Immediate Post Op with CF Date of Surgery September 02, 2023 Pre & Post Diagnosis Operation Date: 09/01/23 23:35 Pre-Op Diagnosis: Cecal volvulus Post-Op Diagnosis: Cecal volvulus I identified the patient and participated in the time-out.: Yes Procedure Operation Date: 09/01/23 23:35 Actual Procedures p Exploratory Laparotomy, Right hemicolectomy, application of abthera wound vac(Not Applicable) - Torres Jasso DO Surgeon Torres Jasso, Green Building Engineer None Estimated Blood Loss 10 Findings See Below Cecal volvulus with severely distended cecum, no signs of necrosis, no perforation Specimens Specimen Description: A: Right colon Drains Bello Catheter (patient came to OR with bello catheter in place, draining yellow, cloudy urine) Anesthesia Type General Complications none Disposition Disposition: Recovery Room
--- NOTE | 2023-09-02 03:13 | Operative Report ---
PG Post Operative Report Pre & Post Diagnosis Operation Date: 09/01/23 23:35 Pre-Op Diagnosis: Cecal volvulus Post-Op Diagnosis: Cecal volvulus I identified the patient and participated in the time-out.: Yes Procedure Operation Date: 09/01/23 23:35 Actual Procedures p Exploratory Laparotomy, Right hemicolectomy, application of abthera wound vac(Not Applicable) - Torres Jasso DO Surgeon Torres Jasso DO Lathe Sander None Estimated Blood Loss 10 Findings See Below Cecal volvulus with severely distended cecum, no necrosis, no perforation Specimens Right colon to pathology Drains Abthera wound vac Anesthesia Type General Complications none Disposition Disposition: Recovery Room Indications 37 yo female with history of MS who presented with cecal volvulus Description of Procedure The patient was brought to the OR and placed in the supine position with both arms abducted. At this time she underwent general endotracheal anesthesia without any problems. She was given appropriate pre-operative antibiotics. Her abdomen was prepped and draped in the usual sterile fashion. Timeout was called. The procedure was verified as Exploratory laparotomy, possible bowel resection, possible ostomy, possible wound vac. Surgical, anesthesia and nursing teams agreed and the procedure was begun. A standard midline incision was made using a #10 blade scalpel. This was carried down to the fascia using electrocautery. The midline fascia was then incised with electrocautery. The peritoneum was then entered bluntly. The incision was then opened up through its entirety. We immediately encountered a severely distended and the volvulized cecum and ascending colon. This was untorsed and there was a very thick adhesive band to the retroperitoneum that was lysed as well. The cecum and ascending colon itself was severely distended but not necrotic and there was no perforation. At this point the right colon was medialized by freeing up the white line of T[place]t taking care not to injure the right kidney laterally. We then proceeded up to the hepatic flexure and visualized the duodenum which was swept posteriorly. At this time we used a KIRK 60 mm blue load stapler to transect the transverse colon preserving the left branch of the middle colic artery. We then used another KIRK 60 mm blue load stapler in order to transect the terminal ileum approximately 10 cm from the ileocecal valve. The mesentery was then taken using the LigaSure device. The specimen was passed off as right colon. At this point the small bowel was eviscerated and ran retrograde from the transection point to the ligament of Treitz. There was no ischemic changes noted. The bowel was of normal caliber. At this point the wound was then irrigated until clear. Hemostasis was achieved using electrocautery. Hemostasis was complete. An Bocandyhera wound VAC was placed into the abdomen and sponge affixed to the skin with aba as a temporary abdominal closure device. This was attached to the wound VAC and there was good suction with no leak. At this point the patient was kept intubated and sedated, and transported to ICU in stable condition with plans for a reexploration laparotomy in 1 to 2 days. I attest to the content of the Intraoperative Record and any orders documented therein. Any exceptions are noted below.
[2023-09-02] MEDS ORDERED: ATROPINE SULFATE 0.1 MG/ML 10ML SYR IV PRN (03:17)
[2023-09-02] MEDS ORDERED: ePHEDrine sulfate 50 MG/ML AMP IV PRN (03:17)
--- NOTE | 2023-09-02 03:19 | Anesthesiology Progress Note ---
Date of Service September 02, 2023 Anesthesia Post Procedure Vital Signs Vital Signs: Temp Pulse Pulse Resp BP BP Pulse Ox 09/02/23 03:14 36.3 C L 81 18 112/73 100 09/02/23 03:06 36.3 C L 83 18 111/66 100 09/02/23 01:51 36.3 C L 85 18 117/71 100 09/01/23 22:30 89 18 109/65 98 09/01/23 22:10 96 H 17 111/51 L 97 09/01/23 21:05 37.1 C 91 H 18 121/76 97 O2 Del Method FiO2 09/02/23 03:14 Mechanical Vent 30 09/02/23 03:06 Mechanical Vent 30 09/02/23 01:51 Mechanical Vent 30 09/01/23 22:30 Room Air 09/01/23 22:10 Room Air 09/01/23 21:05 Room Air Transfer of Care Handoff Completed per policy Notes Mental Status: see notes below Patient Amnestic to Procedure: Yes Nausea / Vomiting: adequately controlled Pain: adequately controlled Airway Patency, RR, SpO2: see Notes below BP & HR: stable & adequate Hydration State: stable & adequate Anesthetic Complications: no major complications apparent Notes: Patient's colon left in discontinuity by surgeon, wound vac applied to open abdomen. Plan for return to OR on Sunday. Patient remains intubated and sedated in the ICU. Report given to RN at bedside and ICU PA-C. Sedation and vent per ICU team.
[2023-09-02] MEDS: propofoL 1,000 MG/100 ML VIAL IV SCH (03:20)
[2023-09-02] MEDS: fentaNYL citrate 2,500 MCG/250 ML BAG IV SCH (03:20)
[2023-09-02] MEDS ORDERED: STAT IV Infusion **Titration per Protocol STA ×2 (03:50→13:07)
[2023-09-02] MEDS ORDERED: fentaNYL BOLUS from BAG IV PRN (03:50)
[2023-09-02] MEDS ORDERED: PROPOFOL BOLUS FROM BAG IV PRN (03:50)
--- NOTE | 2023-09-02 03:52 | Critical Care Consultation ---
Date of Consultation September 02, 2023 Assessment & Plan (1) Cecal volvulus: Impression: 37-year-old female with past medical history of MS, presents to the ICU postop following exploratory laparotomy with right hemicolectomy and wound VAC placement for volvulus. Patient remains mechanically ventilated with plans to undergo additional abdominal surgery on Sunday. Neuro - Sedation: Fentanyl, propofol Multiple sclerosispatient reportedly wheelchair-bound. May make weaning from ventilator difficult Cardiac - Currently hemodynamically stable without needs for vasopressor support. No history of cardiac disease. Continuous mobile telemetry Respiratory - Mechanically ventilatedpatient remains mechanically ventilated following surgery with plan to undergo additional surgery on Sunday. -Follow-up ABG and chest x-ray. -Adjust ventilator as indicated -Continuous end-tidal CO2 and pulse ox monitoring GI - Volvulusstatus post right hemicolectomy with wound VAC placement. Plan to undergo additional surgery on Sunday -Management per general surgery -N.p.o. RENAL/LYTES - Creatinine within normal limits, monitor routine BMPs and replete electrolytes as indicated - Foleystrict I's and O's ENDO - No history of diabetes or thyroid disease. ICU hyperglycemic protocol HEME - H&H stable, monitor routine CBC ID - Continue empiric Zosyn for intra-abdominal coverage LINES/IV ACCESS - Peripheral IVs DVT PROPHYLAXIS - SCDs, hold anticoagulation following ex lap Thank you for allowing us to participate in the care of this patient. Please refer to my attending physician's documentation for any further recommendations. (2) Multiple sclerosis: (3) On mechanically assisted ventilation: (4) Bowel obstruction: Supervising Physician Co-Signing Physician Notes Patient seen and examined. EMR reviewed. Discussed on multidisciplinary rounds and with bedside critical care nurse as well as critical care MIO. The patient is intubated and sedated. Her pressures are slightly soft but she does awaken to verbal and tactile stimulus. She may be slightly intravascularly depleted and additional crystalloid will be administered at this point in time. Keep sedated. Restraints may be required given her open abdomen. No sedation breaks until abdomen is closed. Initiate ICU electrolyte replacement protocol. Repeat lactate pending. Initiate DVT and GI prophylaxis. Patient remains critically ill at this point time. In addition to 40 minutes of critical care time evaluating managing and coordinating care for patient History of Present Illness Attending Physician: Bryan Strickland MD History of Present Illness Patient is a 37-year-old female with a past medical history significant for for multiple sclerosis, migraines, HLD, PTSD, mood disorder, who presented to the emergency department last night with complaints of lower abdominal pain, constipation and decreased urine output with abdominal distention and vomiting at home. CT abdomen and pelvis revealed twisting of ascending colon with high suspicion for volvulus, distended fluid-filled loops of small bowel with evidence of high-grade obstruction. Patient was taken emergently to the OR and underwent exploratory laparotomy with right hemicolectomy and placement of wound VAC. Patient remained intubated postop, with plan to return to OR on Sunday for planned reexploration laparotomy. Patient to remain in ICU for further management at this time. Allergies Allergy/AdvReac Type Severity Reaction Status Date / Time Sulfa (Sulfonamide Allergy Severe Hives Verified 09/01/23 08:20 Antibiotics) gabapentin Allergy Intermediate Hives Verified 09/01/23 08:20 Influenza Virus Vaccines Allergy Intermediate Rash Verified 09/01/23 08:20 Home Medications Medication Instructions Recorded Confirmed Type ascorbic acid (vitamin C) 100 mg 100 mg PO DAILY 09/12/22 09/01/23 History tablet (Vitamin C) cholecalciferol (vitamin D3) 100 1,000 unit PO DAILY 09/12/22 09/01/23 History mcg (4,000 unit) capsule docusate sodium 100 mg capsule 100 mg PO DAILY 09/12/22 09/01/23 History (Colace) meclizine 12.5 mg tablet 12.5 mg PO BID PRN Nausea 09/12/22 09/01/23 History zinc 100 mg tablet 100 mg PO DAILY 09/12/22 09/01/23 History mirabegron 50 mg tablet,extended 50 mg PO DAILY #90 tabs 03/27/23 09/01/23 Rx release 24 hr (Myrbetriq) digestive enzymes 1 tab PO DAILY 08/13/23 09/01/23 History magnesium gluconate 27 mg 27 mg PO BID 08/13/23 09/01/23 History magnesium (500 mg) tablet (Mag-G) omega-3 fatty acids 1,000 mg 1,000 mg PO DAILY 08/13/23 09/01/23 History capsule (Super [place]-3) cefdinir 300 mg capsule 300 mg PO Q12H 7 days #14 caps 09/01/23 09/01/23 Rx ondansetron 4 mg disintegrating 4 mg PO Q12H PRN nausea and 09/01/23 09/01/23 Rx tablet vomiting 3 days #9 tabs Patient History Medical History Multiple sclerosis PTSD (post-traumatic stress disorder) Anxiety Depression Surgical History Hx of wisdom tooth extraction History of endometrial ablation Hx of tubal ligation Social History Smoking Status: Former smoker Do You Dip or Chew Tobacco: No; Hx Alcohol Use: No Hx Substance Use: No Preferred Language: German Communication Ability: Effective Cutter Hand Required: No Beliefs That Will Affect Care: None Current Living Situation: Spouse Feels Safe at Home: Yes Assistive Devices: Cane, Glasses, Walker and Wheelchair Review of Systems Review of Systems: Unobtainable due to cognitive status and Unobtainable due to endotracheal tube Physical Exam Constitutional: comfortable and + mechanically ventilated Eyes: PERRL, conjunctivae normal, anicteric sclerae ENMT: external ear and nose normal, oropharynx normal Neck: trachea midline, no thyromegaly Respiratory: normal respiratory effort, lungs clear to auscultation Cardiovascular: RRR, no murmur, no edema Heart Sounds: normal S1 and normal S2 Extremities: no edema Gastrointestinal (Abdomen): Midline surgical incision with wound VAC. Unable to assess tenderness as patient is currently sedated. Abdomen soft, nondistended. Bowel sounds hypoactive Musculoskeletal: no cyanosis or clubbing, extremities motor strength 5/5 Skin: no rashes, warm and dry Neurologic: Unable to assess due to sedation Psychiatric: Unable to assess due to sedation Genitourinary: 20 Velásquez catheter present, urine yellow and clear Results & Data Results & Data Vital Signs (Past 12 Hours) Vital Signs Temp Pulse Pulse Resp BP BP Pulse Ox 09/02/23 03:14 36.3 C L 81 18 112/73 100 09/02/23 03:06 36.3 C L 83 18 111/66 100 09/02/23 01:51 36.3 C L 85 18 117/71 100 09/01/23 22:30 89 18 109/65 98 09/01/23 22:10 96 H 17 111/51 L 97 09/01/23 21:05 37.1 C 91 H 18 121/76 97 O2 Del Method FiO2 09/02/23 03:14 Mechanical Vent 30 09/02/23 03:06 Mechanical Vent 30 09/02/23 01:51 Mechanical Vent 30 09/01/23 22:30 Room Air 09/01/23 22:10 Room Air 09/01/23 21:05 Room Air Coding Level of Care Code 74856 IN/OBS CONSULT LVL 3,45M Diagnoses 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
[2023-09-02 03:55] LABS: Hematocrit (blood only) 40.7 % (37.0-47.0); Hemoglobin 13.8 g/dl (12.0-16.0); Mean Corpuscular Hemoglobin 33.6 pg (25.0-34.0); Mean Corpuscular Hgb Conc 33.9 g/dL (32.0-36.0); Mean Platelet Volume 8.7 fL (9.4-12.4); Platelet Count 256 K/uL (130-400); RDW Coefficient of Variation 11.1 % (11.5-14.5); RDW Standard Deviation 40.5 fL (36.4-46.3); Red Blood Count 4.11 M/uL (4.20-5.40); White Blood Count 26.24 K/ul (4.8-10.8)
[2023-09-02 04:10] LABS: BUN Creatinine Ratio 25.9 (10-20); Calcium 8.6 mg/dl (8.6-10.3); Creatinine Clr Calc Pharmacy 92.8 ml/min; Est GFR (African American) 135.5 ml/min; Est GFR (Non-African American) 116.9 ml/min
[2023-09-02 04:18] LABS: Basophils # (auto) 0.08 K/uL (0.00-0.20); Basophils % (auto) 0.3 %; Eosinophils # (auto) 0.01 K/uL (0.00-0.50); Immature Granulocytes # (auto) 0.26 K/uL (0.01-0.20); Lymphocytes # (auto) 1.06 K/uL (1.20-3.40); Monocytes # (auto) 0.91 K/uL (0.11-0.59); Monocytes % (auto) 3.5 %; Neutrophils # (auto) 23.92 K/uL (1.40-6.50); Neutrophils % (auto) 91.2 %
[2023-09-02 04:21] LABS: Magnesium 1.9 mg/dl (1.7-2.4); Phosphorus 3.8 mg/dl (2.5-4.9)
[2023-09-02] MEDS: KETOROLAC TROMETHAMINE 15 MG/ML VIAL IV STA (04:35)
[2023-09-02] MEDS: SODIUM CHLORIDE 0.9% 1,000 ML IV ONE (04:35)
[2023-09-02] MEDS: SODIUM CHLORIDE 0.9% 1,000 ML IV SCH (04:36)
[2023-09-02] MEDS: PROPOFOL IV EMULSION 10 MG/ML 100 ML VIAL IV ONE (04:36)
[2023-09-02] MEDS: fentaNYL citrate 2,500 MCG/250 ML BAG IV ONE (04:36)
[2023-09-02] MEDS: PLASMA-LYTE A 1,000 ML IV SCH (04:38)
[2023-09-02] MEDS: PIPERACILLIN/TAZOBACTAM 4.5 GM in DEXTROSE 5% MINI-B 100 ML IV SCH (05:59)
[2023-09-02] MEDS: MAGNESIUM SULFATE / D5W 1 GM/100 ML BAG IV ONE (06:49)
[2023-09-02 07:02] LABS: Estimated Average Glucose 100 mg/dl; Hemoglobin A1C 5.1 % (4.5-5.6)
[2023-09-02] MEDS: ICU Protocol for HYPERglycemia SCH ×2 (07:46→12:19)
--- NOTE | 2023-09-02 07:51 | Electrocardiogram Report ---
Test Reason : Blood Pressure : / mmHG Vent. Rate : 087 BPM Atrial Rate : 087 BPM P-R Int : 110 ms QRS Dur : 078 ms QT Int : 332 ms P-R-T Axes : 000 070 -43 degrees QTc Int : 399 ms Poor data quality, interpretation may be adversely affected Ectopic atrial rhythm Diffuse Minor Nonspecific T wave abnormality Abnormal ECG When compared with ECG of 01-SEP-2023 07:41, Vent. rate has increased BY 36 BPM Ectopic atrial rhythm now present Nonspecific T wave abnormality now present Confirmed by Kashmir Whitley ([id number]) on 09/02/2023 7:50:52 AM Referred By: REFERRED SELF Confirmed By:Kashmir Whitley
--- NOTE | 2023-09-02 08:18 | XRay Report ---
XR chest 1V portable CLINICAL HISTORY: intubation TECHNIQUE: Single frontal radiograph of the chest was obtained. Comparison: Comparison is made to chest radiograph 09/01/2013 FINDINGS: There is an endotracheal tube terminating 48 mm from the letitia, and enteric tube with the tip just s lightly past the lower esophageal segment. The cardiomediastinal silhouette is normal. The lungs are clear. No evidence of pleural effusion or pneumothorax. IMPRESSION: Endotracheal tube is in satisfactory position. Enteric tube can be advanced approximately 3 cm for im proved positioning. ACT 112: Negative or not required by law. Electronically signed by: Lam Monreal M.D. 09/02/2023 8:16 AM
[2023-09-02] MEDS: LACTATED RINGER'S 2,000 ML IV ONE (09:19)
--- NOTE | 2023-09-02 09:40 | Surgery Progress Note ---
Date of Service September 02, 2023 Assessment & Plan (1) Cecal volvulus: Plan: She is doing well and hemodynamically stable Keep sedated and on vent today Continue IVF resuscitation and keep track of UOP Plan to take her back to OR for re-exploration laparotomy, possible bowel resection, possible ostomy (2) Bowel obstruction: Admission and Anticipated Discharge Date Admission Date: September 02, 2023 Subjective Pt seen and examined. Follows commands on vent. No acute events overnight. Physical Exam Constitutional: WD/WN, vitals as above Gastrointestinal (Abdomen): soft, wound vac in place with serosanguinous fluid in place Results & Data Vital Signs (Past 12 Hours) Vital Signs Temp Pulse Pulse Resp BP BP Pulse Ox 09/02/23 09:00 60 18 98 09/02/23 09:00 81/48 L 09/02/23 09:00 61 18 81/48 L 98 09/02/23 08:45 63 18 99 09/02/23 08:45 90/49 L 09/02/23 08:30 87/51 L 09/02/23 08:30 60 18 99 09/02/23 08:15 104/57 L 09/02/23 08:15 64 18 100 09/02/23 08:10 61 18 99 09/02/23 08:00 90/56 L 09/02/23 08:00 63 18 99 09/02/23 08:00 09/02/23 07:51 66 18 99 09/02/23 07:51 92/49 L 09/02/23 07:45 60 18 100 09/02/23 07:40 09/02/23 07:30 87/53 L 09/02/23 07:30 67 18 100 09/02/23 07:15 71 18 100 09/02/23 07:14 37.7 C H 09/02/23 07:11 100/59 L 09/02/23 07:11 73 18 100 09/02/23 07:07 86/52 L 09/02/23 07:07 61 18 100 09/02/23 07:00 85/50 L 09/02/23 07:00 61 18 99 09/02/23 06:47 62 09/02/23 06:37 85/49 L 09/02/23 06:37 62 18 99 09/02/23 06:30 63 19 87/48 L 100 09/02/23 06:00 74 19 96/51 L 100 09/02/23 05:30 73 22 104/56 L 100 09/02/23 05:00 84 18 115/56 L 100 09/02/23 04:48 09/02/23 04:45 86 18 100 09/02/23 04:30 87 18 108/55 L 100 09/02/23 04:00 36.5 C 72 19 116/48 L 100 09/02/23 04:00 09/02/23 04:00 09/02/23 03:54 77 18 111/62 100 09/02/23 03:45 82 18 121/77 100 09/02/23 03:30 77 18 109/63 100 09/02/23 03:20 78 18 110/77 100 09/02/23 03:14 36.3 C L 81 18 112/73 100 09/02/23 03:06 36.3 C L 83 18 111/66 100 09/02/23 01:52 87 18 100 09/02/23 01:51 36.3 C L 85 18 117/71 100 09/01/23 22:30 89 18 109/65 98 09/01/23 22:10 96 H 17 111/51 L 97 09/01/23 21:05 37.1 C 91 H 18 121/76 97 Pulse Ox O2 Del Method O2 Del Method FiO2 09/02/23 09:00 09/02/23 09:00 09/02/23 09:00 Mechanical Vent 09/02/23 08:45 09/02/23 08:45 09/02/23 08:30 09/02/23 08:30 09/02/23 08:15 09/02/23 08:15 09/02/23 08:10 30 09/02/23 08:00 09/02/23 08:00 09/02/23 08:00 30 09/02/23 07:51 09/02/23 07:51 09/02/23 07:45 09/02/23 07:40 Mechanical Vent 09/02/23 07:30 09/02/23 07:30 09/02/23 07:15 09/02/23 07:14 09/02/23 07:11 09/02/23 07:11 09/02/23 07:07 09/02/23 07:07 09/02/23 07:00 09/02/23 07:00 09/02/23 06:47 09/02/23 06:37 09/02/23 06:37 09/02/23 06:30 Mechanical Vent 30 09/02/23 06:00 Mechanical Vent 30 09/02/23 05:30 Mechanical Vent 30 09/02/23 05:00 Mechanical Vent 30 09/02/23 04:48 Mechanical Vent 30 09/02/23 04:45 30 09/02/23 04:30 Mechanical Vent 30 09/02/23 04:00 Mechanical Vent 30 09/02/23 04:00 30 09/02/23 04:00 100 Mechanical Vent 09/02/23 03:54 Mechanical Vent 30 09/02/23 03:45 Mechanical Vent 30 09/02/23 03:30 Mechanical Vent 30 09/02/23 03:20 Mechanical Vent 30 09/02/23 03:14 Mechanical Vent 30 09/02/23 03:06 Mechanical Vent 30 09/02/23 01:52 30 09/02/23 01:51 Mechanical Vent 30 09/01/23 22:30 Room Air 09/01/23 22:10 Room Air 09/01/23 21:05 Room Air PG Care Time/CCT Total # of Minutes Spent Total Time Spent with Patient: Total time spent is greater than 50% in coordination of care (as documented) at patient's floor/unit and/or counseling patient: Coding Level of Care Code 11748 Post Operative Follow-Up Diagnoses Cecal volvulus K56.2 Bowel obstruction K56.609
[2023-09-02] MEDS: PANTOprazole 40 MG in SYRINGE 0 ML IV SCH (10:26)
[2023-09-02] MEDS ORDERED: Nursing to Pharmacy Communication SCH (11:00)
--- NOTE | 2023-09-02 12:21 | Procedure Note ---
Procedure Note Date of Service September 02, 2023 Note ARTERIAL LINE PROCEDURE NOTE: Procedure: Arterial Line Placement Provider: Rafael Hammonds MD Indication: Monitoring on Pressors Anesthesia: None Procedure was emergent. Patient is intubated and sedated. No family immediately available. Estimated blood loss: Less than 5 mL A time-out was completed verifying correct patient, procedure, site, positioning, and implant(s) or special equipment if applicable. Allens test was performed to ensure adequate perfusion. An initial attempt was made on the left. The artery was palpated and I was able to flash however the wire was unable to thread. With visualization with ultrasound afterwards, the artery was very small. We then attempted to place an ultrasound-guided arterial line in the right radial artery under ultrasound guidance. Again I was able to get a flash however due to the small caliber of the vessel, the wire was unable to thread. At that point in time he was determined to hold off on additional attempts at this point in time. Pressure dressings were placed bilaterally. Coding CPT Codes Tubes, Drains, and Vasc Access - Tubes, Drains, and Vasc Access: [id number] Arterial Cath/Cannulation Sampling/Monitoring/Transfusion ([id number]) [facility] [place] Procedure Codes (Charges) Tubes, Drains, and Vasc Access Procedure 1: Tubes, Drains, and Vasc Access: [id number] Arterial Cath/Cannulation Sampling/Monitoring/Transfusion
--- NOTE | 2023-09-02 12:54 | Procedure Note ---
Procedure Note Date of Service September 02, 2023 Note ARTERIAL LINE PROCEDURE NOTE: Procedure: Arterial Line Placement Provider: Rafael Hammonds MD Indication: Monitoring on Pressors Anesthesia: 3 mL 1% lidocaine without epinephrine locally Procedure was emergent. Patient with borderline hemodynamics in the setting of major abdominal surgery. Estimated blood loss: 5 mL A time-out was completed verifying correct patient, procedure, site, positioning, and implant(s) or special equipment if applicable. Ultrasound of the right groin was performed. The vein and artery were easily identified in normal anatomic positions. The groin was cleaned with chlorhexidine which was allowed to completely dry. A sterile field was established. Full barrier precautions were in place. Using ultrasound, the area above the artery was anesthetized with instillation of lidocaine. Once anesthesia was completed, an 18-gauge needle was directed under ultrasound guidance into the right femoral artery. Pulsatile blood flow was returned. The syringe was taken off the needle and a wire passed through the needle per modified Seldinger technique. A skin rojelio was made with the scalpel and the 20 cm arterial line was passed over the wire into the artery. The wire was then removed. An arterial waveform was verified on the monitor. The catheter was sutured in place and a Biopatch and sterile dressing were applied. The patient tolerated the procedure well without obvious complication Coding CPT Codes Tubes, Drains, and Vasc Access - Tubes, Drains, and Vasc Access: [id number] Arterial Cath/Cannulation Sampling/Monitoring/Transfusion ([id number]) Tubes, Drains, and Vasc Access - Tubes, Drains, and Vasc Access: [id number] Ultrasound Guidance For Vascular ([id number]) [facility] [place] (Charges) Tubes, Drains, and Vasc Access Procedure 1: Tubes, Drains, and Vasc Access: [id number] Arterial Cath/Cannulation Sampling/Monitoring/Transfusion Procedure 2: Tubes, Drains, and Vasc Access: [id number] Ultrasound Guidance For Vascular
[2023-09-02] MEDS: HYDROCORTISONE SOD 50 MG in SYRINGE 0 ML IV SCH (12:57)
[2023-09-02 13:27] LABS: Hematocrit (blood only) 34.2 % (37.0-47.0); Mean Corpuscular Hemoglobin 33.8 pg (25.0-34.0); Mean Corpuscular Hgb Conc 35.1 g/dL (32.0-36.0); Mean Corpuscular Volume 96.3 fL (80.0-100.0); Mean Platelet Volume 8.9 fL (9.4-12.4); Platelet Count 225 K/uL (130-400); RDW Coefficient of Variation 11.1 % (11.5-14.5); RDW Standard Deviation 39.3 fL (36.4-46.3); Red Blood Count 3.55 M/uL (4.20-5.40); White Blood Count 16.58 K/ul (4.8-10.8)
[2023-09-02 13:46] LABS: Albumin Globulin Ratio 1.6 (0.9-2); Bilirubin,Total 0.7 mg/dl (0.2-1.0); Calcium 8.1 mg/dl (8.6-10.3); Creatinine Clr Calc Pharmacy 107.7 ml/min; Est GFR (African American) 142.3 ml/min; Est GFR (Non-African American) 122.8 ml/min; Globulin 1.9 gm/dl (2.5-4.0); Potassium 3.8 mmol/L (3.5-5.1); Total Protein 4.9 gm/dl (6.0-8.3)
[2023-09-02 13:49] LABS: Basophils # (auto) 0.02 K/uL (0.00-0.20); Basophils % (auto) 0.1 %; Immature Granulocytes % (auto) 0.6 %; Lymphocytes # (auto) 0.76 K/uL (1.20-3.40); Lymphocytes % (auto) 4.6 %; Monocytes # (auto) 0.64 K/uL (0.11-0.59); Monocytes % (auto) 3.9 %; Neutrophils # (auto) 15.06 K/uL (1.40-6.50); Neutrophils % (auto) 90.8 %
[2023-09-02] MEDS: ICU ELECTROLYTE REPLACEMENT PROTOCOL SCH (14:02)
[2023-09-02] MEDS: POTASSIUM CHLORIDE / WTR 10 MEQ/100 ML PLCT IV SCH ×2 (14:13→18:33)
[2023-09-02] MEDS: HEPARIN SOD 5,000 UNIT/0.5 ML VIAL SQ SCH (14:18)
--- NOTE | 2023-09-02 14:22 | Hospitalist Progress Note ---
Date of Service September 02, 2023 Assessment & Plan (1) Cecal volvulus: Plan: 37-year-old lady with PMH of multiple sclerosis, migraine, HLD, PTSD, mood disorder, endometriosis status post surgery, past tobacco abuse presented with lower abdominal pain, found to have UTI on urine analysis, discharged on cefdinir course for UTI. Presented back again with worsening abdominal discomfort and distention with subsequent emesis associated with chest pain and shortness of breath from abdominal pain. 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 See above. Admitting CTAP suggestive of cecal/ascending colon volvulus. WBC elevated at presentation. General surgery on board. Status post exploratory laparotomy, application of ABThera wound VAC. Continues sedated and vented today, plan to take back to the OR for re- exploration laparotomy, possible bowel resection and possible ostomy tomorrow. WBC improving, blood pressure improving, patient on IV fluid, patient is being managed per ICU protocol. Patient on Zosyn Left adnexal cyst: Incidental finding on admitting CTAP - There is a 6.2 cm cystic focus in the left adnexa, likely related to the left ovary. Inpatient pelvic USG , ? Gynecology consult. UTI: Patient on antibiotic. See above. Other chronic medical conditions: Continue with/resume home meds as and when able. Multiple sclerosis, primary progressive -patient deferred restarting Ocrevus recommendation as per outpatient neurology note from last year. f/u w/ neuro. HLD -not on maintenance treatment PTSD/mood disorder -not on maintenance medication Past tobacco abuse DVT prophylaxis - on heparin. Patient mother Ms. Audra Buchanan, contact #[phone]. Text document was generated using [employer] voice recognition software. It may contain grammatical or spelling errors. Kindly contact undersigned for clarification of any documentation item in question. Admission and Anticipated Discharge Date Admission Date: September 02, 2023 Subjective Patient was seen and examined at bedside. Patient was intubated, mechanically ventilated, opens eyes to her name. Reports no pain. ROS not able in detail. Per RN no new acute event overnight. Patient on fentanyl and propofol drip and also getting IV fluid due to soft b lood pressure. Physical Exam Physical Exam: GENERAL: Opens eyes to name. Sedated. Intubated. Mechanically ventilated. Getting propofol and fentanyl and IV fluid. HEENT: No pallor, no icterus. Pupils equal, round and reactive to light. Oral mucosa dry. NECK: No JVD, no neck masses. HEART: S1 and S2 heard. Regular rate and rhythm. Bradycardia. No murmur, no gallop. RESPIRATORY SYSTEM: Normal AP diameter. No accessory muscle use. No wheezing, no crackles. Decreased breath sounds b/l. ABDOMEN: no palpation performed, incisional wound w/ wound vac noted. CENTRAL NERVOUS SYSTEM: No facial droop. EXTREMITIES: No edema, no erythema seen. Results & Data Results & Data Vital Signs (Past 12 Hours) Vital Signs Temp Pulse Pulse Resp BP BP BP 09/02/23 14:00 37.2 C 09/02/23 13:32 15 09/02/23 13:15 53 L 16 09/02/23 13:15 98/57 L 09/02/23 13:09 54 L 118/54 L 09/02/23 13:00 54 L 16 99/57 L 09/02/23 12:50 64 18 101/64 09/02/23 12:45 68 16 107/67 09/02/23 12:30 59 L 18 106/61 09/02/23 12:15 59 L 19 94/54 L 09/02/23 12:06 37.0 C 62 18 104/66 09/02/23 12:00 78 21 104/66 09/02/23 11:45 70 19 100/65 09/02/23 11:30 74 18 113/64 09/02/23 11:15 69 18 109/67 09/02/23 11:04 36.9 C 73 18 101/66 09/02/23 11:01 73 18 101/66 09/02/23 10:45 73 18 09/02/23 10:45 110/65 09/02/23 10:45 110/65 09/02/23 10:45 70 19 09/02/23 10:30 102/58 L 09/02/23 10:30 67 19 09/02/23 10:18 37.5 C 09/02/23 10:15 60 19 09/02/23 10:15 95/58 L 09/02/23 10:14 75 18 09/02/23 10:14 102/54 L 09/02/23 10:14 91/73 L 09/02/23 10:00 73 19 09/02/23 09:52 38.5 C H 09/02/23 09:46 72 18 09/02/23 09:46 101/64 09/02/23 09:45 63 18 09/02/23 09:33 105/65 09/02/23 09:33 74 18 09/02/23 09:30 65 18 09/02/23 09:15 90/51 L 09/02/23 09:15 67 18 09/02/23 09:00 60 18 09/02/23 09:00 81/48 L 09/02/23 09:00 61 18 81/48 L 09/02/23 08:45 63 18 09/02/23 08:45 90/49 L 09/02/23 08:30 87/51 L 09/02/23 08:30 60 18 09/02/23 08:15 104/57 L 09/02/23 08:15 64 18 09/02/23 08:10 61 18 09/02/23 08:00 90/56 L 09/02/23 08:00 63 18 09/02/23 08:00 09/02/23 07:51 66 18 09/02/23 07:51 92/49 L 09/02/23 07:45 60 18 09/02/23 07:40 09/02/23 07:30 87/53 L 09/02/23 07:30 67 18 09/02/23 07:15 71 18 09/02/23 07:14 37.7 C H 09/02/23 07:11 100/59 L 09/02/23 07:11 73 18 09/02/23 07:07 86/52 L 09/02/23 07:07 61 18 09/02/23 07:00 85/50 L 09/02/23 07:00 61 18 09/02/23 06:47 62 09/02/23 06:37 85/49 L 09/02/23 06:37 62 18 09/02/23 06:30 63 19 87/48 L 09/02/23 06:00 74 19 96/51 L 09/02/23 05:30 73 22 104/56 L 09/02/23 05:00 84 18 115/56 L 09/02/23 04:48 09/02/23 04:45 86 18 09/02/23 04:30 87 18 108/55 L 09/02/23 04:00 36.5 C 72 19 116/48 L 09/02/23 04:00 09/02/23 04:00 09/02/23 03:54 77 18 111/62 09/02/23 03:45 82 18 121/77 09/02/23 03:30 77 18 109/63 09/02/23 03:20 78 18 110/77 09/02/23 03:14 36.3 C L 81 18 112/73 09/02/23 03:06 36.3 C L 83 18 111/66 09/02/23 01:52 87 18 09/02/23 01:51 36.3 C L 85 18 117/71 Pulse Ox Pulse Ox O2 Del Method O2 Del Method FiO2 09/02/23 14:00 09/02/23 13:32 09/02/23 13:15 100 09/02/23 13:15 09/02/23 13:09 09/02/23 13:00 100 Mechanical Vent 21 09/02/23 12:50 99 Mechanical Vent 21 09/02/23 12:45 97 Mechanical Vent 09/02/23 12:30 99 Mechanical Vent 21 09/02/23 12:15 99 Mechanical Vent 21 09/02/23 12:06 99 Mechanical Vent 21 09/02/23 12:00 100 Mechanical Vent 21 09/02/23 11:45 100 Mechanical Vent 21 09/02/23 11:30 100 Mechanical Vent 21 09/02/23 11:15 99 Mechanical Vent 21 09/02/23 11:04 100 Mechanical Vent 21 09/02/23 11:01 100 09/02/23 10:45 100 30 09/02/23 10:45 09/02/23 10:45 09/02/23 10:45 100 09/02/23 10:30 09/02/23 10:30 Mechanical Vent 09/02/23 10:18 09/02/23 10:15 Mechanical Vent 30 09/02/23 10:15 09/02/23 10:14 100 Mechanical Vent 30 09/02/23 10:14 09/02/23 10:14 09/02/23 10:00 100 Mechanical Vent 30 09/02/23 09:52 09/02/23 09:46 100 Mechanical Vent 30 09/02/23 09:46 09/02/23 09:45 100 Mechanical Vent 30 09/02/23 09:33 09/02/23 09:33 99 Mechanical Vent 30 09/02/23 09:30 99 09/02/23 09:15 09/02/23 09:15 99 Mechanical Vent 30 09/02/23 09:00 98 09/02/23 09:00 09/02/23 09:00 98 Mechanical Vent 30 09/02/23 08:45 99 Mechanical Vent 30 09/02/23 08:45 09/02/23 08:30 09/02/23 08:30 99 Mechanical Vent 30 09/02/23 08:15 09/02/23 08:15 100 Mechanical Vent 30 09/02/23 08:10 99 30 09/02/23 08:00 09/02/23 08:00 99 Mechanical Vent 30 09/02/23 08:00 30 09/02/23 07:51 99 Mechanical Vent 30 09/02/23 07:51 09/02/23 07:45 100 Mechanical Vent 30 09/02/23 07:40 Mechanical Vent 30 09/02/23 07:30 09/02/23 07:30 100 Mechanical Vent 30 09/02/23 07:15 100 Mechanical Vent 30 09/02/23 07:14 09/02/23 07:11 09/02/23 07:11 100 Mechanical Vent 30 09/02/23 07:07 09/02/23 07:07 100 Mechanical Vent 30 09/02/23 07:00 09/02/23 07:00 99 Mechanical Vent 30 09/02/23 06:47 09/02/23 06:37 09/02/23 06:37 99 09/02/23 06:30 100 Mechanical Vent 30 09/02/23 06:00 100 Mechanical Vent 30 09/02/23 05:30 100 Mechanical Vent 30 09/02/23 05:00 100 Mechanical Vent 30 09/02/23 04:48 Mechanical Vent 30 09/02/23 04:45 100 30 09/02/23 04:30 100 Mechanical Vent 30 09/02/23 04:00 100 Mechanical Vent 30 09/02/23 04:00 30 09/02/23 04:00 100 Mechanical Vent 09/02/23 03:54 100 Mechanical Vent 30 09/02/23 03:45 100 Mechanical Vent 30 09/02/23 03:30 100 Mechanical Vent 30 09/02/23 03:20 100 Mechanical Vent 30 09/02/23 03:14 100 Mechanical Vent 30 09/02/23 03:06 100 Mechanical Vent 30 09/02/23 01:52 100 30 09/02/23 01:51 100 Mechanical Vent 30
[2023-09-02 17:38] LABS: Magnesium 1.8 mg/dl (1.7-2.4); Phosphorus 3.1 mg/dl (2.5-4.9); Potassium 3.9 mmol/L (3.5-5.1)
[2023-09-02] MEDS: MAGNESIUM SULFATE / D5W 1 GM/100 ML BAG IV SCH (18:32)
[2023-09-03 04:22] LABS: Hematocrit (blood only) 34.7 % (37.0-47.0); Hemoglobin 12.3 g/dl (12.0-16.0); Mean Corpuscular Hemoglobin 34.1 pg (25.0-34.0); Mean Corpuscular Hgb Conc 35.4 g/dL (32.0-36.0); Mean Corpuscular Volume 96.1 fL (80.0-100.0); Mean Platelet Volume 9.3 fL (9.4-12.4); Platelet Count 223 K/uL (130-400); RDW Coefficient of Variation 11.2 % (11.5-14.5); RDW Standard Deviation 39.9 fL (36.4-46.3); Red Blood Count 3.61 M/uL (4.20-5.40); White Blood Count 12.17 K/ul (4.8-10.8)
[2023-09-03 04:39] LABS: Albumin Globulin Ratio 1.4 (0.9-2); Albumin Level 3.1 gm/dl (3.4-5.0); BUN Creatinine Ratio 22.9 (10-20); Bilirubin,Total 0.5 mg/dl (0.2-1.0); Calcium 8.1 mg/dl (8.6-10.3); Creatinine Clr Calc Pharmacy 112.1 ml/min; Est GFR (African American) 144.2 ml/min; Est GFR (Non-African American) 124.4 ml/min; Globulin 2.2 gm/dl (2.5-4.0); Magnesium 2.1 mg/dl (1.7-2.4); Phosphorus 2.9 mg/dl (2.5-4.9); Potassium 3.9 mmol/L (3.5-5.1); Total Protein 5.3 gm/dl (6.0-8.3)
[2023-09-03 04:51] LABS: Basophils # (auto) 0.01 K/uL (0.00-0.20); Basophils % (auto) 0.1 %; Echinocytes 1+; Immature Granulocytes # (auto) 0.06 K/uL (0.01-0.20); Immature Granulocytes % (auto) 0.5 %; Lymphocytes # (auto) 0.66 K/uL (1.20-3.40); Lymphocytes % (auto) 5.4 %; Monocytes # (auto) 0.48 K/uL (0.11-0.59); Monocytes % (auto) 3.9 %; Neutrophils # (auto) 10.96 K/uL (1.40-6.50); Neutrophils % (auto) 90.1 %; Polychromasia 1+
[2023-09-03] MEDS: POTASSIUM CHLORIDE / WTR 10 MEQ/100 ML PLCT IV SCH (05:21)
[2023-09-03] MEDS ORDERED: MIDAZOLAM HCL 1 MG/ML 2ML VIAL ONE (07:12)
[2023-09-03] MEDS ORDERED: PROPOFOL IV EMULSION 10 MG/ML 20 ML VIAL IV ONE (07:12)
[2023-09-03] MEDS ORDERED: ROCURONIUM BROMIDE 10 MG/ML 5 ML VIAL IV ONE (07:12)
[2023-09-03] MEDS ORDERED: ONDANSETRON INJ 2 MG/ML 2 ML VIAL ONE (07:12)
[2023-09-03] MEDS ORDERED: HYDROmorphone INJ 2 MG/ML SYR/VIAL ONE (07:12)
--- NOTE | 2023-09-03 07:19 | Critical Care Progress Note ---
Date of Service September 03, 2023 Assessment & Plan (1) Cecal volvulus: (2) Multiple sclerosis: (3) On mechanically assisted ventilation: (4) Bowel obstruction: Plan Impression: 37-year-old female with past medical history of MS, presents to the ICU postop following exploratory laparotomy with right hemicolectomy and wound VAC placement for volvulus. Patient remains mechanically ventilated with plans to undergo additional abdominal surgery on Sunday. Neuro - Sedation: Fentanyl, propofol Multiple sclerosispatient reportedly wheelchair-bound Cardiac - -- Brief hypotensive episode Was started on hydrocortisone 50 mg every 6 Random cortisol 17.32 Respiratory - Mechanically ventilatedpatient remains mechanically ventilated following surgery with plan to undergo additional surgery 09/03/2023 -Adjust ventilator as indicated -Continuous end-tidal CO2 and pulse ox monitoring GI - -- Volvulus Status post right hemicolectomy 09/02/2023 with wound VAC placement -Management per general surgery RENAL/LYTES - -- Monitor BUNs/creatinine - Foleystrict I's and O's ENDO - -- Continue with ICU hyperglycemia protocol HEME - -- Monitor H&H ID - Continue empiric Zosyn for intra-abdominal coverage --Pansensitive E. coli in the urine 09/01/2019 Already on Zosyn to cover for intra-abdominal process --Prophylaxis VTE: Heparin GI: Pantoprazole Lines: Peripheral, right femoral radial Diet: N.p.o. Plan: In/out: +2.3 L, urine output 3285. Positive for liters since coming to the hospital Continue with Zosyn Patient to go to the OR today. Post OR will try to keep the patient on pressure support with trial of extubation post OR if possible Decrease hydrocortisone to 50 mg every 12 Heparin currently on hold. Can resume it later tonight. Potassium being replaced I have personally spent 38 minutes of critical care time in the direct management of this patient. This is a life/limb threatening event. This includes time spent evaluating patient, direct bedside care, chart review, placing orders, interpretation of diagnostic studies, discussion with consultants, patient, and family members, as well as other required patient management activities. This time is exclusive of all separately billable procedures, and teaching time and separate from and in addition to any other critical care service time. Please note the above document was generated using voice recognition software. It may contain grammatical, syntax or spelling errors. Admission and Anticipated Discharge Date Admission Date: September 02, 2023 Subjective Patient seen and examined at bedside. No acute distress, notable symptoms overnight Patient was breathing with the vent. On propofol and fentanyl for sedation Has been afebrile. Wound VAC in place Review of Systems 2 Review of Systems: All systems reviewed & are unremarkable except as noted in Subjective Physical Exam 2 Physical Exam: Constitutional: No acute distress HEENT: PERRLA Respiratory system: Decreased air entry bilaterally, no wheeze, no rhonchi, mild crackles bilaterally CVS: S1-S2 positive, no murmurs or gallops Abdomen: Soft, nontender, nondistended, positive bowel sounds x4 Extremities: +2 pulses bilaterally radialis/ dorsalis pedis, no cyanosis, no edema Neuro: Intubated, breathing over the vent Psych: Unable to access G/U: +ve bello Skin: no rashes, warm and dry Lymphatic: no cervical or axillary lymphadenopathy Results & Data Results & Data Vital Signs (Past 12 Hours) Vital Signs Temp Pulse Resp BP Pulse Ox O2 Del Method FiO2 09/03/23 06:00 48 L 15 110/65 99 Mechanical Vent 09/03/23 05:30 48 L 15 112/66 99 Mechanical Vent 09/03/23 05:00 48 L 15 117/68 99 Mechanical Vent 09/03/23 04:00 36.8 C 54 L 15 112/67 99 Mechanical Vent 09/03/23 04:00 21 09/03/23 03:37 131/61 09/03/23 03:32 48 L 15 100 09/03/23 03:00 47 L 15 109/67 99 Mechanical Vent 21 09/03/23 02:00 49 L 15 113/61 98 Mechanical Vent 09/03/23 01:00 50 L 15 102/59 L 99 Mechanical Vent 09/03/23 00:00 36.9 C 50 L 15 100/54 L 100 Mechanical Vent 09/03/23 00:00 122/58 L 09/02/23 23:57 50 L 15 98 21 09/02/23 23:46 21 09/02/23 23:03 52 L 09/02/23 23:00 51 L 15 99/55 L 99 Mechanical Vent 21 09/02/23 22:00 52 L 15 101/57 L 99 Mechanical Vent 21 09/02/23 21:22 Mechanical Vent 09/02/23 21:00 51 L 15 105/61 99 Mechanical Vent 21 09/02/23 20:27 51 L 15 99 21 09/02/23 20:00 36.5 C 57 L 17 100/62 100 Mechanical Vent 21 09/02/23 20:00 21 09/02/23 20:00 132/64 09/02/23 19:24 51 L Laboratory Results 09/03/23 03:56 09/03/23 03:56 Coding Level of Care Code 63591 CRITICAL CARE 1ST 30-74M Diagnoses Cecal volvulus K56.2 Multiple sclerosis G35 On mechanically assisted ventilation Z99.11 Bowel obstruction K56.609 Time Spent (min) 38
--- NOTE | 2023-09-03 07:24 | Anesthesiology Consultation ---
Date of Service September 03, 2023 Assessment & Plan Consults Requested medical & cardiac Pulmonary History Surgery Operation Date: 09/01/23 23:35 Proposed Procedures p Exploratory Laparotomy - Torres Jasso DO s Bowel Resection - Torres Jasso DO Operation Date: 09/03/23 08:20 Proposed Procedures p Exploratory Laparotomy, Possibly Ostomy, Possible Wound Vac Exchange - Torres Jasso DO Height/Weight Height: 5 ft 6 in Weight: 47 kg Allergies Allergy/AdvReac Type Severity Reaction Status Date / Time Sulfa (Sulfonamide Allergy Severe Hives Verified 09/01/23 08:20 Antibiotics) gabapentin Allergy Intermediate Hives Verified 09/01/23 08:20 Influenza Virus Vaccines Allergy Intermediate Rash Verified 09/01/23 08:20 Medications Home Medications Medication Instructions Recorded Confirmed Last Taken ascorbic acid (vitamin C) 100 mg 100 mg PO DAILY 09/12/22 09/01/23 Unknown tablet (Vitamin C) cholecalciferol (vitamin D3) 100 1,000 unit PO DAILY 09/12/22 09/01/23 Unknown mcg (4,000 unit) capsule docusate sodium 100 mg capsule 100 mg PO DAILY 09/12/22 09/01/23 Unknown (Colace) meclizine 12.5 mg tablet 12.5 mg PO BID PRN Nausea 09/12/22 09/01/23 Unknown zinc 100 mg tablet 100 mg PO DAILY 09/12/22 09/01/23 Unknown mirabegron 50 mg tablet,extended 50 mg PO DAILY #90 tabs 03/27/23 09/01/23 Unknown release 24 hr (Myrbetriq) digestive enzymes 1 tab PO DAILY 08/13/23 09/01/23 Unknown magnesium gluconate 27 mg 27 mg PO BID 08/13/23 09/01/23 Unknown magnesium (500 mg) tablet (Mag-G) omega-3 fatty acids 1,000 mg 1,000 mg PO DAILY 08/13/23 09/01/23 Unknown capsule ([place]-3) cefdinir 300 mg capsule 300 mg PO Q12H 7 days #14 caps 09/01/23 09/01/23 09/01/23 18:30 ondansetron 4 mg disintegrating 4 mg PO Q12H PRN nausea and 09/01/23 09/01/23 09/01/23 18:30 tablet vomiting 3 days #9 tabs Active Medications Generic Name Dose Route Start Last Admin Trade Name Nette PRN Reason Stop Dose Admin Heparin Sodium (Porcine) 5,000 units 09/02/23 14:00 09/03/23 05:36 Heparin Sod 5,000 Unit/0.5 Ml Vial SQ 10/02/23 13:59 5,000 units Q8 YOLIS Administration Piperacillin Sod/Tazobactam 100 mls @ 25 mls/hr 09/02/23 06:00 09/03/23 05:31 Sod 4.5 gm/ Dextrose IV 09/12/23 05:59 25 mls/hr Q8H YOLIS Administration Protocol Propofol 1,000 mg in 100 mls @ 5.364 mls/hr 09/02/23 04:00 09/03/23 05:17 Diprivan IV 09/05/23 03:59 20 mcg/kg/min .[id number] YOLIS 5.4 mls/hr Administration Protocol 20 MCG/KG/MIN Fentanyl Citrate 2,500 mcg in 250 mls @ 12.5 mls/hr 09/02/23 04:00 09/03/23 00:31 Fentanyl Citrate IV 09/16/23 03:59 125 mcg/hr .Q20H YOLIS 12.5 mls/hr Administration Protocol 125 MCG/HR Parenteral Electrolytes 1,000 mls @ 80 mls/hr 09/02/23 04:00 09/03/23 03:49 Plasma-Lyte A Ph 7.4 IV 10/02/23 03:59 80 mls/hr .[id number] YOLIS Administration Pantoprazole Sodium 40 mg/ 10 mls @ 5 mls/min 09/02/23 11:00 09/02/23 10:26 Syringe IV 10/02/23 10:59 5 mls/min DAILY@1100 YOLIS Administration Hydrocortisone Sodium 1 mls @ 4 mls/min 09/02/23 12:30 09/03/23 05:37 Succinate 50 mg/ Syringe IV 10/02/23 12:29 4 mls/min Q6H YOLIS Administration Potassium Chloride 10 meq in 100 mls @ 100 mls/hr 09/03/23 05:15 09/03/23 07:14 K Johan / Wtr IV 09/03/23 09:14 0 mls/hr Q1H YOLIS Infusion Miscellaneous 1 each 09/02/23 18:00 09/03/23 04:58 Icu Electrolyte Replacement Protocol N/A 09/09/23 17:59 1 each BID@06,18 YOLIS Administration Protocol Miscellaneous 1 each 09/02/23 12:00 09/03/23 05:41 Icu Protocol For Hyperglycemia N/A 09/04/23 07:29 Not Given Q6 YOLIS NPO Date Last Intake of Fluids: 09/01/23 Last Intake of Fluids Comment: t-2 Date Last Intake of Solids: 09/01/23 Past Medical History Medical History Multiple sclerosis PTSD (post-traumatic stress disorder) Anxiety Depression Past Surgical History Surgical History Hx of wisdom tooth extraction History of endometrial ablation Hx of tubal ligation Social History Smoking Status: Former smoker tobacco type: e-cigarettes Do You Dip or Chew Tobacco: No Hx Alcohol Use: No Hx Substance Use: No substance use type: does not use Review of Systems Constitutional: no fever and no chills Eyes: no blind spots and no worsening vision Ear, Nose, Mouth, Throat: no ear pain and no hearing loss Respiratory: no cough and no dyspnea Cardiovascular: no chest pain and no dyspnea on exertion Gastrointestinal: + abdominal pain and + nausea; no vomiting, no change in stools and no constipation Genitourinary (Female): no dysuria and no urinary urgency Musculoskeletal: no back pain and no neck pain Integumentary: no acne, no skin ulcer and no erythema Neurologic: + gait abnormality and + problem reported (MS); no headache(s) Psychiatric: no behavioral changes and no depression Hematologic / Lymphatic: no easy bleeding and no easy bruising Physical Exam Vital Signs Last Vital Signs Temp 36.8 C 09/03/23 04:00 Pulse 49 L 09/03/23 07:05 Resp 16 09/03/23 07:05 BP 125/69 09/03/23 07:05 Pulse Ox 97 09/03/23 07:05 O2 Del Method T-Piece 09/03/23 07:05 FiO2 21 09/03/23 06:00 Testing Laboratory Results 09/03/23 03:56 09/03/23 03:56 Hemoglobin A1c 5.1 % (4.5-5.6) 09/01/23 21:20 09/03/23 09/03/23 05:38 00:15 POC Glucose 129 H 120 H 09/02/23 00:00 POC Ur Test NEG
--- NOTE | 2023-09-03 07:39 | Surgery Progress Note ---
Date of Service September 03, 2023 Assessment & Plan (1) Cecal volvulus: Plan: Proceed with re-exploration laparotomy, possible bowel resection, possible ostomy (2) Bowel obstruction: Admission and Anticipated Discharge Date Admission Date: September 02, 2023 Subjective Pt seen and examined. No acute events overnight. Afebrile. Review of Systems Constitutional: no fever and no chills Physical Exam Constitutional: WD/WN, vitals as above Gastrointestinal (Abdomen): soft, wound vac in place with serosanguinous fluid in place Results & Data Vital Signs (Past 12 Hours) Vital Signs Temp Pulse Resp BP Pulse Ox O2 Del Method FiO2 09/03/23 07:05 49 L 16 125/69 97 T-Piece 09/03/23 06:00 48 L 15 110/65 99 Mechanical Vent 09/03/23 05:30 48 L 15 112/66 99 Mechanical Vent 09/03/23 05:00 48 L 15 117/68 99 Mechanical Vent 09/03/23 04:00 36.8 C 54 L 15 112/67 99 Mechanical Vent 09/03/23 04:00 09/03/23 03:37 131/61 09/03/23 03:32 48 L 15 100 09/03/23 03:00 47 L 15 109/67 99 Mechanical Vent 09/03/23 02:00 49 L 15 113/61 98 Mechanical Vent 09/03/23 01:00 50 L 15 102/59 L 99 Mechanical Vent 09/03/23 00:00 36.9 C 50 L 15 100/54 L 100 Mechanical Vent 09/03/23 00:00 122/58 L 09/02/23 23:57 50 L 15 98 09/02/23 23:46 09/02/23 23:03 52 L 09/02/23 23:00 51 L 15 99/55 L 99 Mechanical Vent 09/02/23 22:00 52 L 15 101/57 L 99 Mechanical Vent 09/02/23 21:22 Mechanical Vent 09/02/23 21:00 51 L 15 105/61 99 Mechanical Vent 09/02/23 20:27 51 L 15 99 21 09/02/23 20:00 36.5 C 57 L 17 100/62 100 Mechanical Vent 21 09/02/23 20:00 09/02/23 20:00 132/64 PG Care Time/CCT Total # of Minutes Spent Total Time Spent with Patient: Total time spent is greater than 50% in coordination of care (as documented) at patient's floor/unit and/or counseling patient: Coding Level of Care Code 00974 SUB INP/OBS CARE 1/25MIN Diagnoses Cecal volvulus K56.2 Bowel obstruction K56.609
[2023-09-03] MEDS ORDERED: SUGAMMADEX SODIUM 200 MG/2 ML VIAL IV ONE (08:28)
--- NOTE | 2023-09-03 09:27 | Post Operative Brief Note ---
PG Immediate Post Op with CF Date of Surgery September 03, 2023 Pre & Post Diagnosis Operation Date: 09/03/23 08:20 Pre-Op Diagnosis: (1) Cecal volvulus: (2) Bowel obstruction: Post-Op Diagnosis: (1) Cecal volvulus: (2) Bowel obstruction: I identified the patient and participated in the time-out.: Yes Procedure Operation Date: 09/03/23 08:20 Actual Procedures p Re-Exploratoration Laparotomy, Transverse Colon Resection, Creation of ileocolonic anastomosis, abdominal wall closure(Not Applicable) - Torres Jasso DO Surgeon Torres Jasso DO Licensed Plumber None Estimated Blood Loss 20 Findings See Below Small area of intramural hematoma on proximal end of transverse colon, otherwise healthy appearing small bowel and colon Specimens Specimen Description: A. Portion of Transverse Colon B. Portion of Anastomosis Drains Velásquez Catheter Anesthesia Type General Complications None Disposition Disposition: Recovery Room
--- NOTE | 2023-09-03 09:33 | Operative Report ---
PG Post Operative Report Pre & Post Diagnosis Operation Date: 09/03/23 08:20 Pre-Op Diagnosis: (1) Cecal volvulus: (2) Bowel obstruction: Post-Op Diagnosis: (1) Cecal volvulus: (2) Bowel obstruction: I identified the patient and participated in the time-out.: Yes Procedure Operation Date: 09/03/23 08:20 Actual Procedures p Re-Exploratoration Laparotomy, Transverse Colon Resection, Creation of ileocolonic anastomosis, abdominal wall closure(Not Applicable) - Torres Jasso DO Surgeon Torres Jasso DO Basket Hand Braider Hansa Vallecillo PA-C Estimated Blood Loss 20 Findings See Below Small area of intramural hematoma on proximal end of transverse colon, otherwise healthy appearing small bowel and colon Specimens Portion of transverse colon, portion of anastomosis to pathology Drains None Anesthesia Type General Complications none Disposition Disposition: Recovery Room Indications 37 yo female s/p right hemicolectomy for cecal volvulus, open abdomen Description of Procedure The patient was brought to the OR and placed in the supine position with both arms abducted. At this time she underwent general endotracheal anesthesia without any problems. She was given appropriate pre-operative antibiotics. His abdomen was prepped and draped in the usual sterile fashion. Timeout was ca lled. The procedure was verified as Exploratory laparotomy, possible bowel resection, possible ostomy, possible wound vac. Surgical, anesthesia and nursing teams agreed and the procedure was begun. The previous wound vac dressing was removed and discarded. We immediately washed out the abdomen with 1L of warm saline. At this time we found the ends of ileum and transverse colon at the previous resection point. The transverse colon had what appeared to be a small intramural hematoma with possibly the beginning of some necrosis. Using a KIRK 80mm blue load stapler a small portion of the transverse colon was resected and mesentery ligated using 3-0 Vicryl. This was sent as specimen. We then proceeded to create our anastomosis. This was done by making an enterotomy and colotomy and placing a KIRK 80 mm blue load stapler on the antimesenteric side of the small bowel and colon to create a common channel. We then used another KIRK 80 mm blue load stapler to close the common enterotomy. A single 3-0 silk crotch stitch was placed to decrease tension on the anastomosis. The anastomosis was free of tension and had no ischemic changes. At this point the wound was then irrigated until clear. Hemostasis was achieved using electrocautery. Hemostasis was complete. The fascia was then closed in a running fashion using 2 #0 looped PDS suture starting superiorly and inferiorly and meeting in the middle. Skin was closed with aba. Sterile dressing was applied. All needle and sponge counts were correct x 2. At this point the patient was awakened from anesthesia, and transported to PACU in stable condition. The physician's family medicine physician assistant was present and scrubbed for the entirety of the case. She was critical in positioning the patient, prepping and draping, retraction and exposure, closure of the incision and placement of the dressings. I attest to the content of the Intraoperative Record and any orders documented therein. Any exceptions are noted below.
--- NOTE | 2023-09-03 10:20 | Anesthesiology Progress Note ---
Date of Service September 03, 2023 Anesthesia Post Procedure Vital Signs Vital Signs: Temp Pulse Pulse Resp BP BP Pulse Ox 09/03/23 10:16 47 L 147/73 H 09/03/23 09:37 47 L 15 100 09/03/23 07:41 50 L 15 97 09/03/23 07:30 48 L 15 107/64 97 09/03/23 07:05 49 L 16 125/69 97 09/03/23 07:00 48 L 15 114/67 98 09/03/23 07:00 37.2 C 09/03/23 07:00 09/03/23 06:30 48 L 15 115/69 99 09/03/23 06:00 48 L 15 110/65 99 09/03/23 05:30 48 L 15 112/66 99 09/03/23 05:00 48 L 15 117/68 99 09/03/23 04:00 36.8 C 54 L 15 112/67 99 09/03/23 04:00 09/03/23 03:37 131/61 09/03/23 03:32 48 L 15 100 09/03/23 03:00 47 L 15 109/67 99 09/03/23 02:00 49 L 15 113/61 98 09/03/23 01:00 50 L 15 102/59 L 99 09/03/23 00:00 36.9 C 50 L 15 100/54 L 100 09/03/23 00:00 122/58 L 09/02/23 23:57 50 L 15 98 09/02/23 23:46 09/02/23 23:03 52 L 09/02/23 23:00 51 L 15 99/55 L 99 09/02/23 22:00 52 L 15 101/57 L 99 09/02/23 21:22 09/02/23 21:00 51 L 15 105/61 99 09/02/23 20:27 51 L 15 99 09/02/23 20:00 36.5 C 57 L 17 100/62 100 09/02/23 20:00 09/02/23 20:00 132/64 09/02/23 19:24 51 L 09/02/23 19:00 52 L 15 103/63 99 09/02/23 18:41 37.3 C 09/02/23 18:30 49 L 15 105/61 100 09/02/23 18:01 53 L 15 101/35 L 99 09/02/23 17:30 51 L 15 100/56 L 100 09/02/23 17:00 54 L 15 100/60 99 09/02/23 16:37 37.0 C 09/02/23 16:30 52 L 15 99 09/02/23 16:30 102/61 09/02/23 16:00 52 L 15 103/62 99 09/02/23 16:00 09/02/23 16:00 54 L 124/58 L 09/02/23 15:45 53 L 15 105/62 99 09/02/23 15:30 54 L 15 105/61 99 09/02/23 15:15 54 L 15 99 09/02/23 15:15 108/62 09/02/23 15:05 51 L 15 98 09/02/23 15:00 105/59 L 09/02/23 15:00 52 L 15 99 09/02/23 14:45 101/61 09/02/23 14:45 51 L 15 101/61 98 09/02/23 14:40 51 L 09/02/23 14:33 71 15 102/62 100 09/02/23 14:15 58 L 13 98 09/02/23 14:15 111/57 L 09/02/23 14:00 52 L 13 97 09/02/23 14:00 92/55 L 09/02/23 14:00 92/55 L 09/02/23 14:00 37.2 C 09/02/23 13:53 53 L 09/02/23 13:45 53 L 13 98 09/02/23 13:45 96/55 L 09/02/23 13:45 96/55 L 09/02/23 13:32 15 09/02/23 13:30 52 L 13 99 09/02/23 13:30 97/56 L 09/02/23 13:30 97/56 L 09/02/23 13:15 53 L 16 100 09/02/23 13:15 98/57 L 09/02/23 13:09 54 L 118/54 L 09/02/23 13:00 54 L 16 99/57 L 100 09/02/23 12:50 64 18 101/64 99 09/02/23 12:45 68 16 107/67 97 09/02/23 12:30 59 L 18 106/61 99 09/02/23 12:15 59 L 19 94/54 L 99 09/02/23 12:06 37.0 C 62 18 104/66 99 09/02/23 12:00 78 21 104/66 100 09/02/23 11:45 70 19 100/65 100 09/02/23 11:30 74 18 113/64 100 09/02/23 11:15 69 18 109/67 99 09/02/23 11:04 36.9 C 73 18 101/66 100 09/02/23 11:01 73 18 101/66 100 09/02/23 10:45 73 18 100 09/02/23 10:45 110/65 09/02/23 10:45 110/65 09/02/23 10:45 70 19 100 09/02/23 10:30 102/58 L 09/02/23 10:30 67 19 O2 Del Method FiO2 09/03/23 10:16 09/03/23 09:37 09/03/23 07:41 09/03/23 07:30 Mechanical Vent 09/03/23 07:05 T-Piece 09/03/23 07:00 Mechanical Vent 09/03/23 07:00 09/03/23 07:00 09/03/23 06:30 Mechanical Vent 09/03/23 06:00 Mechanical Vent 09/03/23 05:30 Mechanical Vent 09/03/23 05:00 Mechanical Vent 09/03/23 04:00 Mechanical Vent 09/03/23 04:00 09/03/23 03:37 09/03/23 03:32 09/03/23 03:00 Mechanical Vent 09/03/23 02:00 Mechanical Vent 09/03/23 01:00 Mechanical Vent 09/03/23 00:00 Mechanical Vent 09/03/23 00:00 09/02/23 23:57 21 09/02/23 23:46 09/02/23 23:03 09/02/23 23:00 Mechanical Vent 09/02/23 22:00 Mechanical Vent 09/02/23 21:22 Mechanical Vent 09/02/23 21:00 Mechanical Vent 09/02/23 20:27 21 09/02/23 20:00 Mechanical Vent 21 09/02/23 20:00 21 09/02/23 20:00 09/02/23 19:24 09/02/23 19:00 Mechanical Vent 21 09/02/23 18:41 09/02/23 18:30 Mechanical Vent 21 09/02/23 18:01 Mechanical Vent 21 09/02/23 17:30 Mechanical Vent 21 09/02/23 17:00 Mechanical Vent 21 09/02/23 16:37 09/02/23 16:30 09/02/23 16:30 09/02/23 16:00 Mechanical Vent 21 09/02/23 16:00 21 09/02/23 16:00 09/02/23 15:45 Mechanical Vent 21 09/02/23 15:30 Mechanical Vent 21 09/02/23 15:15 09/02/23 15:15 09/02/23 15:05 21 09/02/23 15:00 09/02/23 15:00 09/02/23 14:45 09/02/23 14:45 Mechanical Vent 21 09/02/23 14:40 09/02/23 14:33 Mechanical Vent 21 09/02/23 14:15 09/02/23 14:15 09/02/23 14:00 09/02/23 14:00 09/02/23 14:00 09/02/23 14:00 09/02/23 13:53 09/02/23 13:45 09/02/23 13:45 09/02/23 13:45 09/02/23 13:32 09/02/23 13:30 09/02/23 13:30 09/02/23 13:30 09/02/23 13:15 09/02/23 13:15 09/02/23 13:09 09/02/23 13:00 Mechanical Vent 21 09/02/23 12:50 Mechanical Vent 21 09/02/23 12:45 Mechanical Vent 21 09/02/23 12:30 Mechanical Vent 21 09/02/23 12:15 Mechanical Vent 21 09/02/23 12:06 Mechanical Vent 21 09/02/23 12:00 Mechanical Vent 21 09/02/23 11:45 Mechanical Vent 21 09/02/23 11:30 Mechanical Vent 21 09/02/23 11:15 Mechanical Vent 21 09/02/23 11:04 Mechanical Vent 21 09/02/23 11:01 09/02/23 10:45 30 09/02/23 10:45 09/02/23 10:45 09/02/23 10:45 09/02/23 10:30 09/02/23 10:30 Mechanical Vent Transfer of Care Handoff Completed per policy Notes Mental Status: alert / awake / arousable Nausea / Vomiting: adequately controlled Pain: adequately controlled Airway Patency, RR, SpO2: stable & adequate BP & HR: stable & adequate Hydration State: stable & adequate Anesthetic Complications: no major complications apparent and Pt Satisfied with anesthetic care Notes: pt remains intubated in ICU. VSS with extubatIon anticipated
[2023-09-03] MEDS: ACETAMINOPHEN 1,000 MG/100 ML VIAL IV PRN (11:01)
[2023-09-03 14:07] LABS: iSTAT Arterial Blood Gas HCO3 22 meg/L (19-24); iSTAT Arterial Blood Gas pCO2 27 mmHg (35-46); iSTAT Arterial Blood Gas pH 7.51 (7.35-7.45); iSTAT Arterial Blood Gas pO2 100 mmHg (80-95); iSTAT Carbon Dioxide 22 mmol/L (24-31); iSTAT Hematocrit 32 % (37-47); iSTAT Hemoglobin 10.9 g/dl (12.0-16.0); iSTAT Potassium 3.7 mmol/L (3.3-5.0); iSTAT Sodium 139 mmol/L (135-144)
[2023-09-03 14:07] LABS: iSTAT Arterial Blood Gas HCO3 22 meg/L (19-24); iSTAT Arterial Blood Gas pCO2 34 mmHg (35-46); iSTAT Arterial Blood Gas pH 7.41 (7.35-7.45); iSTAT Arterial Blood Gas pO2 102 mmHg (80-95); iSTAT Carbon Dioxide 23 mmol/L (24-31); iSTAT Hematocrit 34 % (37-47); iSTAT Hemoglobin 11.6 g/dl (12.0-16.0); iSTAT Potassium 3.9 mmol/L (3.3-5.0); iSTAT Sodium 139 mmol/L (135-144)
[2023-09-03 14:07] LABS: iSTAT Arterial Blood Gas HCO3 23 meg/L (19-24); iSTAT Arterial Blood Gas pCO2 50 mmHg (35-46); iSTAT Arterial Blood Gas pH 7.27 (7.35-7.45); iSTAT Arterial Blood Gas pO2 130 mmHg (80-95); iSTAT Carbon Dioxide 25 mmol/L (24-31); iSTAT Hematocrit 39 % (37-47); iSTAT Hemoglobin 13.3 g/dl (12.0-16.0); iSTAT Potassium 4.2 mmol/L (3.3-5.0); iSTAT Sodium 138 mmol/L (135-144)
--- NOTE | 2023-09-03 14:34 | Hospitalist Progress Note ---
Date of Service September 03, 2023 Assessment & Plan (1) Cecal volvulus: Plan: 37-year-old lady with PMH of multiple sclerosis, migraine, HLD, PTSD, mood disorder, endometriosis status post surgery, past tobacco abuse presented with lower abdominal pain, found to have UTI on urine analysis, discharged on cefdinir course for UTI. Presented back again with worsening abdominal discomfort and distention with subsequent emesis associated with chest pain and shortness of breath from abdominal pain. 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 See above. Admitting CTAP suggestive of cecal/ascending colon volvulus. WBC elevated at presentation. General surgery on board. Status post exploratory laparotomy, application of ABThera wound VAC 08/31 Status post reexploration laparotomy, transverse colon resection, creation of ileocolonic anastomosis, abdominal wall closure 09/02. WBC improving, blood pressure improving, patient on IV fluid, patient is being managed per ICU protocol. Patient on Zosyn Left adnexal cyst: Incidental finding on admitting CTAP - There is a 6.2 cm cystic focus in the left adnexa, likely related to the left ovary. Inpatient pelvic USG , ? Gynecology consult. UTI: Patient on antibiotic. See above. Other chronic medical conditions: Continue with/resume home meds as and when able. Multiple sclerosis, primary progressive -patient deferred restarting Ocrevus recommendation as per outpatient neurology note from last year. f/u w/ neuro on DC. HLD -not on maintenance treatment PTSD/mood disorder -not on maintenance medication Past tobacco abuse DVT prophylaxis - on heparin. Patient mother Ms. Audra Buchanan, contact #[phone]. Pt's both parents present at bedside, they were updated about her current status and answered all their questions. Text document was generated using [employer] voice recognition software. It may contain grammatical or spelling errors. Kindly contact undersigned for clarification of any documentation item in question. Admission and Anticipated Discharge Date Admission Date: September 02, 2023 Subjective Patient was seen and examined at bedside. Patient was intubated, undergoing spontaneous trial, opening eyes spontaneously, can follow commands. Reports no pain. ROS not able in detail. Patient underwent repeat abd surgery today. Physical Exam Physical Exam: GENERAL: Spontaneous eye opening, intubated. Undergoing spontaneous trial. HEENT: No pallor, no icterus. Pupils equal, round and reactive to light. Oral mucosa dry. NECK: No JVD, no neck masses. HEART: S1 and S2 heard. Regular rate and rhythm. Bradycardia. No murmur, no gallop. RESPIRATORY SYSTEM: Normal AP diameter. No accessory muscle use. No wheezing, no crackles. ABDOMEN: no palpation performed, incisional wound w/ wound vac noted. CENTRAL NERVOUS SYSTEM: No facial droop. EXTREMITIES: No edema, no erythema seen. Results & Data Results & Data Vital Signs (Past 12 Hours) Vital Signs Temp Pulse Pulse Resp BP BP Pulse Ox 09/03/23 14:27 36.9 C 09/03/23 14:05 61 13 100 09/03/23 13:30 51 L 15 107/59 L 100 09/03/23 13:00 54 L 15 106/58 L 100 09/03/23 12:45 58 L 17 100 09/03/23 12:30 53 L 15 103/55 L 98 09/03/23 12:00 36.7 C 09/03/23 12:00 52 L 12 109/61 100 09/03/23 12:00 09/03/23 12:00 60 128/59 L 09/03/23 11:30 60 12 120/62 100 09/03/23 11:00 73 16 115/89 99 09/03/23 10:55 19 09/03/23 10:45 56 L 15 116/67 99 09/03/23 10:30 68 15 118/69 99 09/03/23 10:20 72 19 140/69 100 09/03/23 10:16 47 L 147/73 H 09/03/23 10:15 56 L 18 120/73 95 09/03/23 10:10 67 16 99 09/03/23 10:00 40 L 16 130/73 100 09/03/23 10:00 40 L 15 130/73 100 09/03/23 09:50 45 L 16 136/71 99 09/03/23 09:40 36.5 C 44 L 16 127/69 100 09/03/23 09:40 46 L 15 127/69 100 09/03/23 09:37 47 L 15 100 09/03/23 09:35 48 L 15 114/65 100 09/03/23 07:41 50 L 15 97 09/03/23 07:30 48 L 15 107/64 97 09/03/23 07:05 49 L 16 125/69 97 09/03/23 07:00 09/03/23 07:00 48 L 15 114/67 98 09/03/23 07:00 37.2 C 09/03/23 07:00 09/03/23 06:30 48 L 15 115/69 99 09/03/23 06:00 48 L 15 110/65 99 09/03/23 05:30 48 L 15 112/66 99 09/03/23 05:00 48 L 15 117/68 99 09/03/23 04:00 36.8 C 54 L 15 112/67 99 09/03/23 04:00 09/03/23 03:37 131/61 09/03/23 03:32 48 L 15 100 09/03/23 03:00 47 L 15 109/67 99 O2 Del Method FiO2 09/03/23 14:27 09/03/23 14:05 09/03/23 13:30 Mechanical Vent 09/03/23 13:00 Mechanical Vent 09/03/23 12:45 09/03/23 12:30 Mechanical Vent 09/03/23 12:00 09/03/23 12:00 CPAP, Mechanical Vent 09/03/23 12:00 09/03/23 12:00 09/03/23 11:30 CPAP, Mechanical Vent 09/03/23 11:00 CPAP, Mechanical Vent 09/03/23 10:55 09/03/23 10:45 Mechanical Vent 09/03/23 10:30 Mechanical Vent 09/03/23 10:20 Mechanical Vent 09/03/23 10:16 09/03/23 10:15 Mechanical Vent 09/03/23 10:10 Mechanical Vent 09/03/23 10:00 Mechanical Vent 09/03/23 10:00 Mechanical Vent 09/03/23 09:50 Mechanical Vent 09/03/23 09:40 Mechanical Vent 09/03/23 09:40 Mechanical Vent 09/03/23 09:37 21 09/03/23 09:35 Mechanical Vent 09/03/23 07:41 21 09/03/23 07:30 Mechanical Vent 09/03/23 07:05 T-Piece 09/03/23 07:00 Mechanical Vent 09/03/23 07:00 Mechanical Vent 09/03/23 07:00 09/03/23 07:00 09/03/23 06:30 Mechanical Vent 09/03/23 06:00 Mechanical Vent 09/03/23 05:30 Mechanical Vent 09/03/23 05:00 Mechanical Vent 09/03/23 04:00 Mechanical Vent 09/03/23 04:00 09/03/23 03:37 09/03/23 03:32 09/03/23 03:00 Mechanical Vent 21
[2023-09-03] MEDS: MoRPHine SULFATE 2 MG/ML CARP IV PRN (16:48)
[2023-09-03] MEDS: HYDROCORTISONE SOD 50 MG in SYRINGE 0 ML IV SCH (17:32)
[2023-09-03] MEDS: NOREPINEPHRINE/D5W 4 MG/250 ML PLCT IV SCH (20:04)
[2023-09-04 04:47] LABS: Basophils # (auto) 0.02 K/uL (0.00-0.20); Basophils % (auto) 0.1 %; Hematocrit (blood only) 31.7 % (37.0-47.0); Hemoglobin 10.7 g/dl (12.0-16.0); Immature Granulocytes # (auto) 0.08 K/uL (0.01-0.20); Immature Granulocytes % (auto) 0.6 %; Lymphocytes # (auto) 0.96 K/uL (1.20-3.40); Lymphocytes % (auto) 6.6 %; Mean Corpuscular Hemoglobin 33.9 pg (25.0-34.0); Mean Corpuscular Hgb Conc 33.8 g/dL (32.0-36.0); Mean Corpuscular Volume 100.3 fL (80.0-100.0); Mean Platelet Volume 9.2 fL (9.4-12.4); Monocytes # (auto) 0.56 K/uL (0.11-0.59); Monocytes % (auto) 3.9 %; Neutrophils # (auto) 12.83 K/uL (1.40-6.50); Neutrophils % (auto) 88.8 %; Platelet Count 241 K/uL (130-400); RDW Coefficient of Variation 11.4 % (11.5-14.5); RDW Standard Deviation 41.8 fL (36.4-46.3); Red Blood Count 3.16 M/uL (4.20-5.40); White Blood Count 14.45 K/ul (4.8-10.8)
[2023-09-04 05:02] LABS: Albumin Globulin Ratio 1.3 (0.9-2); Albumin Level 2.6 gm/dl (3.4-5.0); BUN Creatinine Ratio 38.6 (10-20); Bilirubin,Total 0.4 mg/dl (0.2-1.0); Calcium 7.9 mg/dl (8.6-10.3); Creatinine Clr Calc Pharmacy 128.6 ml/min; Est GFR (African American) 148.4 ml/min; Est GFR (Non-African American) 128.1 ml/min; Magnesium 1.8 mg/dl (1.7-2.4); Phosphorus 3.1 mg/dl (2.5-4.9); Potassium 3.9 mmol/L (3.5-5.1); Total Protein 4.6 gm/dl (6.0-8.3)
[2023-09-04] MEDS: MAGNESIUM SULFATE / D5W 1 GM/100 ML BAG IV SCH (05:26)
[2023-09-04] MEDS: POTASSIUM CHLORIDE / WTR 10 MEQ/100 ML PLCT IV SCH (05:26)
[2023-09-04] MEDS ORDERED: MAGNESIUM SULFATE / D5W 1 GM/100 ML BAG IV SCH (06:15)
--- NOTE | 2023-09-04 07:18 | Critical Care Progress Note ---
Date of Service September 04, 2023 Assessment & Plan (1) Cecal volvulus: (2) Multiple sclerosis: (3) On mechanically assisted ventilation: (4) Bowel obstruction: Plan Impression: 37-year-old female with past medical history of MS, presents to the ICU postop following exploratory laparotomy with right hemicolectomy and wound VAC placement for volvulus. Patient remains mechanically ventilated with plans to undergo additional abdominal surgery on Sunday. Neuro - Sedation: Fentanyl, propofol Multiple sclerosispatient reportedly wheelchair-bound Cardiac - -- Brief hypotensive episode Was started on hydrocortisone 50 mg every 6 --> decreased to 50 mg every 12 on 09/03/2023 Random cortisol 17.32 Respiratory - S/p mechanical ventilationpatient remains mechanically ventilated following surgery, additional surgery 09/03/2023 -Extubated 09/03/2023 -Continuous end-tidal CO2 and pulse ox monitoring GI - -- Volvulus Status post right hemicolectomy 09/02/2023 with wound VAC placement -Management per general surgery RENAL/LYTES - -- Monitor BUNs/creatinine - Foleystrict I's and O's ENDO - -- Continue with ICU hyperglycemia protocol HEME - -- Monitor H&H ID - Continue empiric Zosyn for intra-abdominal coverage --Pansensitive E. coli in the urine 09/01/2019 Already on Zosyn to cover for intra-abdominal process --Prophylaxis VTE: Heparin GI: Pantoprazole Lines: Peripheral, right femoral radial Diet: N.p.o. Plan: In/out: +1.1 L, urine output 1780. + 5 liters since coming to the hospital Potassium and magnesium being replaced There is a drop in hemoglobin compared to yesterday. Repeat H&H later today. Patient's map on the A-line has been in the low 70s. Cuff pressure is usually Lower than the A-line. DC arterial line, DC Bello prior to downgrade Patient hemodynamically stable to be downgrade to medical floor Case discussed with Dr. Strickland Please note the above document was generated using voice recognition software. It may contain grammatical, syntax or spelling errors.Any formal questions or concerns about the content, text or information contained within the body of this dictation should be directly addressed to the provider for clarification. Admission and Anticipated Discharge Date Admission Date: September 02, 2023 Subjective Patient seen and examined at bedside. No acute distress, no adverse events overnight Complains of mild abdominal discomfort which is managed by pain medications Did pass some gas. Positive nausea, no vomiting Denies any headache, no dizziness No shortness of breath Review of Systems 2 Review of Systems: All systems reviewed & are unremarkable except as noted in Subjective Physical Exam 2 Physical Exam: Constitutional: No acute distress HEENT: PERRLA, EOMI Respiratory system: Decreased air entry bilaterally, no wheeze, no rhonchi, mild crackles bilaterally CVS: S1-S2 positive, no murmurs or gallops Abdomen: Soft, mild diffuse tenderness with no rebound nondistended, positive but decreased bowel sounds Extremities: +2 pulses bilaterally radialis/ dorsalis pedis, no cyanosis, no edema Neuro: Wake alert oriented x 3 Psych: Normal mood and affect G/U: +ve bello Skin: no rashes, warm and dry Lymphatic: no cervical or axillary lymphadenopathy Results & Data Results & Data Vital Signs (Past 12 Hours) Vital Signs Temp Pulse Resp BP Pulse Ox O2 Del Method 09/04/23 06:00 36.7 C 55 L 12 103/58 L 99 Room Air 09/04/23 05:00 55 L 14 101/57 L 98 Room Air 09/04/23 04:00 54 L 12 106/56 L 98 Room Air 09/04/23 04:00 53 L 130/54 L 09/04/23 03:00 53 L 12 103/56 L 96 Room Air 09/04/23 02:00 36.5 C 53 L 12 104/57 L 98 Room Air 09/04/23 01:00 52 L 12 102/55 L 97 Room Air 09/04/23 00:00 54 L 12 104/57 L 99 Room Air 09/04/23 00:00 53 L 09/03/23 23:47 54 L 123/53 L 09/03/23 22:00 36.9 C 53 L 12 102/53 L 97 Room Air 09/03/23 19:53 55 L 124/55 L 09/03/23 19:47 59 L Laboratory Results 09/04/23 04:11 09/04/23 04:11 Coding Level of Care Code 31830 SUB INP/OBS CARE 3/50MIN Diagnoses Cecal volvulus K56.2 Multiple sclerosis G35 On mechanically assisted ventilation Z99.11 Bowel obstruction K56.609
--- NOTE | 2023-09-04 08:19 | Surgery Progress Note ---
Date of Service September 04, 2023 Assessment & Plan (1) Cecal volvulus: Plan: POD#1 abdominal re-exploration, creation of ileocolonic anastomosis, washout; POD#3 ex lap, R hemicolectomy and abthera vac placement WBC 14, Hbg 10.2 (12). Vitals are stable. Patient has been extubated Endorsing feeling fatigued and sore today Abdominal dressings c/d/i. + expected discomfort to palpation, continue prn pain control as needed Passing small amounts of gas. Will allow sips/chips for today Okay for bello to be removed from our standpoint Recommend OOB to chair and PT/OT consultations Okay for downgrade from our standpoint Admission and Anticipated Discharge Date Admission Date: September 02, 2023 Supervising Physician Co-Signing Physician Notes I personally saw and evaluated the patient with Hansa Vallecillo PA-C and agree with the assessment and plan 37 yo s/p right hemicolectomy for cecal volvulus, POD#1 anastomosis and closure She has been extubated and doing well Remove Bello Start sips/chips Continue Zosyn for 5 day course post-operatively Can be transferred out of ICU from surgical standpoint PT/OT consults Lovenox for DVT prophylaxis Subjective Patient reports feeling tired and a bit sore. Passing small amounts of gas. Otherwise no major complaints. Understands her surgical procedure. Physical Exam Physical Exam: awake/alert, tired appearing. no distress Respiratory: normal respiratory effort Gastrointestinal (Abdomen): Inspection/Auscultation: + abdomen distended (mild) and + abdominal surgical incision (surgical dressings c/d/i) Percussion/Palpation: + abdomen tender and abdomen soft Results & Data Vital Signs (Past 12 Hours) Vital Signs Temp Pulse Resp BP Pulse Ox O2 Del Method 09/04/23 06:00 98.1 F 55 L 12 103/58 L 99 Room Air 09/04/23 05:00 55 L 14 101/57 L 98 Room Air 09/04/23 04:00 54 L 12 106/56 L 98 Room Air 09/04/23 04:00 53 L 130/54 L 09/04/23 03:00 53 L 12 103/56 L 96 Room Air 09/04/23 02:00 97.7 F 53 L 12 104/57 L 98 Room Air 09/04/23 01:00 52 L 12 102/55 L 97 Room Air 09/04/23 00:00 54 L 12 104/57 L 99 Room Air 09/04/23 00:00 53 L 09/03/23 23:47 54 L 123/53 L 09/03/23 22:00 98.4 F 53 L 12 102/53 L 97 Room Air PG Care Time/CCT Total # of Minutes Spent Total Time Spent with Patient: Total time spent is greater than 50% in coordination of care (as documented) at patient's floor/unit and/or counseling patient: Coding Level of Care Code 11718 Post Operative Follow-Up Diagnoses Cecal volvulus K56.2
[2023-09-04 13:05] LABS: Hematocrit (blood only) 31.6 % (37.0-47.0); Hemoglobin 10.8 g/dl (12.0-16.0)
--- NOTE | 2023-09-04 15:01 | Hospitalist Progress Note ---
Date of Service September 04, 2023 Assessment & Plan (1) Cecal volvulus: Plan: 37-year-old lady with PMH of multiple sclerosis, migraine, HLD, PTSD, mood disorder, endometriosis status post surgery, past tobacco abuse presented with lower abdominal pain, found to have UTI on urine analysis, discharged on cefdinir course for UTI. Presented back again with worsening abdominal discomfort and distention with subsequent emesis associated with chest pain and shortness of breath from abdominal pain. 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 See above. Admitting CTAP suggestive of cecal/ascending colon volvulus. WBC elevated at presentation. General surgery on board. Status post exploratory laparotomy, application of ABThera wound VAC 08/31 Status post reexploration laparotomy, transverse colon resection, creation of ileocolonic anastomosis, abdominal wall closure 09/02. WBC improving, blood pressure improving, patient on IV fluid, NPO. Diet Mx per Sx. c/w Zosyn for intraabd coverage. Will downgrade the patient to pcu/tele. Left adnexal cyst: Incidental finding on admitting CTAP - There is a 6.2 cm cystic focus in the left adnexa, likely related to the left ovary. Inpatient pelvic USG , ? Gynecology consult. UTI: Patient on antibiotic. See above. Other chronic medical conditions: Continue with/resume home meds as and when able. Multiple sclerosis, primary progressive -patient deferred restarting Ocrevus recommendation as per outpatient neurology note from last year. f/u w/ neuro on DC. HLD -not on maintenance treatment PTSD/mood disorder -not on maintenance medication Past tobacco abuse DVT prophylaxis - on heparin. Patient mother Ms. Audra Buchanan, contact #[phone]. Pt's both parents present at bedside again today, they were updated about her current status and answered all their questions. Text document was generated using [employer] voice recognition software. It may contain grammatical or spelling errors. Kindly contact undersigned for clarification of any documentation item in question. Admission and Anticipated Discharge Date Admission Date: September 02, 2023 Subjective Patient was seen and examined at bedside. Patient is extubated, on room air, NAD, not in any acute distress. Patient reports abdominal pain being on the milder side, being managed with pain medication. Patient reports moving gas but has normal bowel, denies vomiting or cough. Patient denies any febrile illness or headache or dizziness or shortness of breath. Physical Exam Physical Exam: GENERAL: Room air, NAD, alert and oriented x 3. HEENT: No pallor, no icterus. Pupils equal, round and reactive to light. Oral mucosa moist. NECK: No JVD, no neck masses. HEART: S1 and S2 heard. Regular rate and rhythm. Bradycardia. No murmur, no gallop. RESPIRATORY SYSTEM: Normal AP diameter. No accessory muscle use. No wheezing, no crackles. ABDOMEN: no palpation performed, clean dressing over the operative site without soakage. CENTRAL NERVOUS SYSTEM: No facial droop. EXTREMITIES: No edema, no erythema seen. Results & Data Results & Data Vital Signs (Past 12 Hours) Vital Signs Temp Pulse Pulse Resp BP BP BP 09/04/23 12:00 58 L 14 105/57 L 09/04/23 11:00 36.6 C 60 15 110/65 134/61 09/04/23 08:00 36.6 C 65 18 128/47 L 09/04/23 08:00 56 L 09/04/23 08:00 128/47 L 09/04/23 06:00 36.7 C 55 L 12 103/58 L 09/04/23 05:00 55 L 14 101/57 L 09/04/23 04:00 54 L 12 106/56 L 09/04/23 04:00 53 L 130/54 L 09/04/23 03:00 53 L 12 103/56 L BP Pulse Ox O2 Del Method 09/04/23 12:00 98 Room Air 09/04/23 11:00 99 Room Air 09/04/23 08:00 110/56 L 97 Room Air 09/04/23 08:00 09/04/23 08:00 09/04/23 06:00 99 Room Air 09/04/23 05:00 98 Room Air 09/04/23 04:00 98 Room Air 09/04/23 04:00 09/04/23 03:00 96 Room Air
[2023-09-04] MEDS: ACETAMINOPHEN 10MG/ML Custom 650 MG in EMPTY BAG 0 ML IV PRN (21:01)
[2023-09-04] MEDS: ONDANSETRON INJ 2 MG/ML 2 ML VIAL IV PRN (23:54)
[2023-09-05 06:19] LABS: Basophils # (auto) 0.01 K/uL (0.00-0.20); Basophils % (auto) 0.1 %; Hematocrit (blood only) 31.1 % (37.0-47.0); Hemoglobin 10.7 g/dl (12.0-16.0); Immature Granulocytes # (auto) 0.03 K/uL (0.01-0.20); Immature Granulocytes % (auto) 0.3 %; Lymphocytes # (auto) 1.52 K/uL (1.20-3.40); Mean Corpuscular Hemoglobin 34.1 pg (25.0-34.0); Mean Corpuscular Hgb Conc 34.4 g/dL (32.0-36.0); Mean Platelet Volume 9.4 fL (9.4-12.4); Monocytes # (auto) 0.55 K/uL (0.11-0.59); Monocytes % (auto) 5.1 %; Neutrophils # (auto) 8.72 K/uL (1.40-6.50); Neutrophils % (auto) 80.5 %; Platelet Count 293 K/uL (130-400); RDW Coefficient of Variation 11.1 % (11.5-14.5); RDW Standard Deviation 39.7 fL (36.4-46.3); Red Blood Count 3.14 M/uL (4.20-5.40); White Blood Count 10.83 K/ul (4.8-10.8)
[2023-09-05 06:45] LABS: Albumin Globulin Ratio 1.3 (0.9-2); Albumin Level 2.7 gm/dl (3.4-5.0); BUN Creatinine Ratio 37.8 (10-20); Bilirubin,Total 0.4 mg/dl (0.2-1.0); Calcium 7.8 mg/dl (8.6-10.3); Creatinine Clr Calc Pharmacy 144.5 ml/min; Est GFR (African American) 147.3 ml/min; Est GFR (Non-African American) 127.1 ml/min; Globulin 2.1 gm/dl (2.5-4.0); Magnesium 1.8 mg/dl (1.7-2.4); Phosphorus 2.9 mg/dl (2.5-4.9); Potassium 3.8 mmol/L (3.5-5.1); Total Protein 4.8 gm/dl (6.0-8.3)
--- NOTE | 2023-09-05 09:06 | Surgery Progress Note ---
Date of Service September 05, 2023 Assessment & Plan (1) Cecal volvulus: Plan: POD#2 abdominal re-exploration, creation of ileocolonic anastomosis, washout; POD#4 ex lap, R hemicolectomy and abthera vac placement WBC 10.7 (14) H/H 10.7, 31.7 Stable Edema noted to bilateral hands Patient had a BM this AM Velásquez removed yesterday Has mild nausea with any increase in abd pain, morphine and IV Tylenol for pain currently rating a 4/10 VSS tolerating sips and chips Admission and Anticipated Discharge Date Admission Date: September 02, 2023 Supervising Physician Co-Signing Physician Notes I personally saw and evaluated the patient with Chani AVELAR and agree with the assessment and plan 37 yo s/p right hemicolectomy for cecal volvulus, POD#2 anastomosis and closure Labs reviewed Continue Zosyn for 5 day course post-operatively Start clears She is passing some flatus and had a small BM PT/OT consults Lovenox for DVT prophylaxis Subjective Patient awake, reports abd soreness Had BM this AM Mild nausea with any increased abd pain Currently rating pain a 4/10 Review of Systems Constitutional: + fatigue; no fever and no chills Respiratory: no dyspnea Gastrointestinal: + abdominal pain and + nausea; no vomiti ng Neurologic: no confusion Physical Exam Physical Exam: awake, alert , pleasant Constitutional: cooperative and comfortable; no acute distress ENMT: external ear and nose normal, oropharynx normal Respiratory: normal respiratory effort and able to speak in complete sen tences; no respiratory distress Cardiovascular: Rate/Rhythm: regular rate Gastrointestinal (Abdomen): Percussion/Palpation: + abdomen tender and abdomen soft Abd dressing CDI Neurologic: awake; not confused Psychiatric: A+Ox3, euthymic affect Results & Data Vital Signs (Past 12 Hours) Vital Signs Temp Pulse Resp BP Pulse Ox O2 Del Method 09/05/23 08:39 63 18 121/67 94 Room Air 09/05/23 07:50 58 L 09/05/23 07:00 57 L 7 L 98 09/05/23 06:00 55 L 5 L 96 09/05/23 05:00 59 L 7 L 98 09/05/23 04:00 51 L 15 98 09/05/23 04:00 Room Air 09/05/23 03:45 121/69 09/05/23 03:45 98 F 58 L 16 121/69 97 09/05/23 03:00 51 L 9 L 98 09/05/23 02:00 56 L 14 97 09/05/23 01:00 53 L 14 96 09/05/23 00:36 66 09/05/23 00:00 54 L 15 94 09/04/23 23:51 98.1 F 64 17 95 09/04/23 23:51 116/51 L 09/04/23 23:45 62 95 Results Complete Blood Count Results: RBC 3.14 M/uL (4.20-5.40) L 09/05/23 WBC 10.83 K/ul (4.8-10.8) H 09/05/23 Hgb 10.7 g/dl (12.0-16.0) L 09/05/23 Hct 31.1 % (37.0-47.0) L 09/05/23 Plt Count 293 K/uL (130-400) 09/05/23 Results CMP Results: Na 140 mmol/L (136-145) 09/05/23 K 3.8 mmol/L (3.5-5.1) 09/05/23 Cl 107 mmol/L (98-107) 09/05/23 CO2 26 mmol/L (21-32) 09/05/23 Anion Gap 7 (3-11) 09/05/23 BUN 17 mg/dl (6-23) 09/05/23 Creatinine 0.45 mg/dl (0.6-1.2) L 09/05/23 Estimated GFR ( Amer) 147.3 ml/min 09/05/23 Estimated GFR (Non-Af Amer) 127.1 ml/min 09/05/23 BUN/Creatinine Ratio 37.8 (10-20) H 09/05/23 Glu 86 mg/dl (70-99(Fasting)) 09/05/23 Ca 7.8 mg/dl (8.6-10.3) L 09/05/23 Phosphorus Level 2.9 mg/dl (2.5-4.9) 09/05/23 Total Bilirubin 0.4 mg/dl (0.2-1.0) 09/05/23 AST 14 U/L (13-39) 09/05/23 ALT 11 U/L (7-52) 09/05/23 Alkaline Phosphatase 30 U/L (34-104) L 09/05/23 TP 4.8 gm/dl (6.0-8.3) L 09/05/23 Albumin 2.7 gm/dl (3.4-5.0) L 09/05/23 Globulin 2.1 gm/dl (2.5-4.0) L 09/05/23 Albumin/Globulin Ratio 1.3 (0.9-2) 09/05/23 PG Care Time/CCT Total # of Minutes Spent Total Time Spent with Patient: Total time spent is greater than 50% in coordination of care (as documented) at patient's floor/unit and/or counseling patient: Coding Level of Care Code 88088 Post Operative Follow-Up Diagnoses Cecal volvulus K56.2
--- NOTE | 2023-09-05 14:11 | Hospitalist Progress Note ---
Date of Service September 05, 2023 Assessment & Plan (1) Cecal volvulus: Plan: 37-year-old lady with PMH of multiple sclerosis, migraine, HLD, PTSD, mood disorder, endometriosis status post surgery, past tobacco abuse presented with lower abdominal pain, found to have UTI on urine analysis, discharged on cefdinir course for UTI. Presented back again with worsening abdominal discomfort and distention with subsequent emesis associated with chest pain and shortness of breath from abdominal pain. 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 Admitting CTAP suggestive of cecal/ascending colon volvulus. WBC elevated at presentation. General surgery on board. Status post exploratory laparotomy, application of ABThera wound VAC 09/01/23 Status post reexploration laparotomy, transverse colon resection, creation of ileocolonic anastomosis, abdominal wall closure 09/03/23. WBC improving Continue zosyn to complete 5 days post op per surgeon Discussed with surgeon Started on liquid diet today Monitor Left adnexal cyst: Incidental finding on admitting CTAP - There is a 6.2 cm cystic focus in the le ft adnexa, likely related to the left ovary. Inpatient pelvic USG , Needs to follow up with Gyne outpatient for this UTI: Urine culture grew Ecoli Will be covered with above listed antibiotics. Other chronic medical conditions: Continue with/resume home meds as and when able. Multiple sclerosis, primary progressive -patient deferred restarting Ocrevus recommendation as per outpatient neurology note from last year. f/u w/ neuro on DC. HLD -not on maintenance treatment PTSD/mood disorder -not on maintenance medication Past tobacco abuse DVT prophylaxis - on heparin. Patient mother Ms. Audra Buchanan, contact #[phone]. I spent a total of 45 minutes coordinating, documenting and providing care for this patient excluding time spent in performance of separately billed services Admission and Anticipated Discharge Date Admission Date: September 02, 2023 Subjective Patient seen and examined this afternoon. Reports surgical site pain is controlled. Has been tolerating sips since yesterday Started on clear liquid today Reported nausea earlier with increased abd pain but none at this time No vomiting Had BM earlier Physical Exam Constitutional: + well hydrated; no acute distress Eyes: PERRL, conjunctivae normal, anicteric sclerae ENMT: external ear and nose normal, oropharynx normal Respiratory: normal respiratory effort, lungs clear to auscultation Cardiovascular: Rate/Rhythm: regular rate and regular rhythm S1 S2 Gastrointestinal (Abdomen): Not distended, clean dressing over surgical site, mild tender Musculoskeletal: no cyanosis or clubbing, extremities motor strength 5/5 Neurologic: PERRL, EOMI, accommodation nl, no face palsy, no dysarthria Psychiatric: A+Ox3, euthymic affect Results & Data Results & Data Vital Signs (Past 12 Hours) Vital Signs Temp Pulse Resp BP Pulse Ox O2 Del Method 09/05/23 12:12 36.6 C 58 L 16 118/63 96 Room Air 09/05/23 08:39 63 18 121/67 94 Room Air 09/05/23 07:50 58 L 09/05/23 07:00 57 L 7 L 98 09/05/23 06:00 55 L 5 L 96 09/05/23 05:00 59 L 7 L 98 09/05/23 04:00 51 L 15 98 09/05/23 04:00 Room Air 09/05/23 03:45 121/69 09/05/23 03:45 36.6 C 58 L 16 121/69 97 09/05/23 03:00 51 L 9 L 98 Laboratory Results Abnormal lab results 09/05/23 09/05/23 Range/Units 05:47 05:52 WBC 10.83 H (4.8-10.8) K/ul RBC 3.14 L (4.20-5.40) M/uL Hgb 10.7 L (12.0-16.0) g/dl Hct 31.1 L (37.0-47.0) % MCH 34.1 H (25.0-34.0) pg RDW Coeff of Kristy 11.1 L (11.5-14.5) % Neut # (Auto) 8.72 H (1.40-6.50) K/uL Creatinine 0.45 L (0.6-1.2) mg/dl BUN/Creatinine Ratio 37.8 H (10-20) Calcium 7.8 L (8.6-10.3) mg/dl Alkaline Phosphatase 30 L (34-104) U/L Total Protein 4.8 L (6.0-8.3) gm/dl Albumin 2.7 L (3.4-5.0) gm/dl Globulin 2.1 L (2.5-4.0) gm/dl
[2023-09-05 21:47] LABS: Hematocrit (blood only) 33.3 % (37.0-47.0); Hemoglobin 11.5 g/dl (12.0-16.0)
[2023-09-06 04:24] LABS: BUN Creatinine Ratio 43.8 (10-20); Calcium 7.8 mg/dl (8.6-10.3); Creatinine Clr Calc Pharmacy 135.5 ml/min; Est GFR (African American) 144.2 ml/min; Est GFR (Non-African American) 124.4 ml/min; Magnesium 1.6 mg/dl (1.7-2.4); Phosphorus 3.6 mg/dl (2.5-4.9); Potassium 3.5 mmol/L (3.5-5.1)
[2023-09-06] MEDS: MAGNESIUM SULFATE / D5W 1 GM/100 ML BAG IV SCH (05:47)
--- NOTE | 2023-09-06 10:55 | Surgery Progress Note ---
Date of Service September 06, 2023 Assessment & Plan (1) Cecal volvulus: Plan: POD#3 abdominal re-exploration, creation of ileocolonic anastomosis, washout; POD#5 ex lap, R hemicolectomy and abthera vac placement H/H yesterday evening 11.5, 33.3 Stable Edema noted to bilateral hands VSS was on a clear liquid diet yesterday however was made NPO by primary team Ok for clear liquid from surgical stand point Abd dressing removed and changed, aba CDI, gauze and Medipore tape, small blister to LLQ noted when tape removed, covered with gauze and small amount of tape. Will monitor Admission and Anticipated Discharge Date Admission Date: September 02, 2023 Supervising Physician Co-Signing Physician Notes I personally saw and evaluated the patient with Chani AVELAR and agree with the assessment and plan 37 yo s/p right hemicolectomy for cecal volvulus, POD#3 anastomosis and closure Labs reviewed, hgb has been stable, would only check CBC daily unless something changes with her clinically Continue Zosyn for 5 day course post-operatively Restart clears She is having some BM's, no emesis PT/OT consults IS Lovenox for DVT prophylaxis Subjective Pt reports feeling ok still some abdominal discomfort nausea comes and goes mostly while being moved in bed No vomiting Review of Systems Constitutional: no fever and no chills Cardiovascular: no chest pain Gastrointestinal: + abdominal pain and + nausea; no vomiti ng Musculoskeletal: + muscle weakness Physical Exam Physical Exam: alert oriented Constitutional: cooperative and comfortable; no acute distress Respiratory: normal respiratory effort and able to speak in complete sentences; no respiratory distress Cardiovascular: Rate/Rhythm: + bradycardic (54) Gastrointestinal (Abdomen): Inspection/Auscultation: + abdomen distended and + abdominal surgical incision (CDI aba ) Percussion/Palpation: + abdomen tender and abdomen soft Skin: blister LLQ noted when changing surgical dressing Results & Data Vital Signs (Past 12 Hours) Vital Signs Temp Pulse Pulse Resp BP BP Pulse Ox 09/06/23 08:04 97.9 F 09/06/23 08:00 97.9 F 54 L 12 120/69 98 09/06/23 06:00 16 121/71 94 09/06/23 06:00 57 L 19 09/06/23 05:00 54 L 15 95 09/06/23 04:00 98.1 F 51 L 14 121/66 93 09/06/23 04:00 51 L 15 09/06/23 03:00 49 L 16 09/06/23 02:00 109/62 94 09/06/23 02:00 56 L 16 09/06/23 00:30 50 L 09/06/23 00:23 53 L 17 09/06/23 00:23 107/69 94 09/06/23 00:23 107/69 09/06/23 00:00 55 L 18 O2 Del Method 09/06/23 08:04 09/06/23 08:00 Room Air 09/06/23 06:00 Room Air 09/06/23 06:00 09/06/23 05:00 Room Air 09/06/23 04:00 Room Air 09/06/23 04:00 09/06/23 03:00 09/06/23 02:00 Room Air 09/06/23 02:00 09/06/23 00:30 09/06/23 00:23 09/06/23 00:23 09/06/23 00:23 09/06/23 00:00 Room Air Results Complete Blood Count Results: RBC 3.14 M/uL (4.20-5.40) L 09/05/23 WBC 10.83 K/ul (4.8-10.8) H 09/05/23 Hgb 11.5 g/dl (12.0-16.0) L 09/05/23 Hct 33.3 % (37.0-47.0) L 09/05/23 Plt Count 293 K/uL (130-400) 09/05/23 Results CMP Results: Na 138 mmol/L (136-145) 09/06/23 K 3.5 mmol/L (3.5-5.1) 09/06/23 Cl 106 mmol/L (98-107) 09/06/23 CO2 25 mmol/L (21-32) 09/06/23 Anion Gap 7 (3-11) 09/06/23 BUN 21 mg/dl (6-23) 09/06/23 Creatinine 0.48 mg/dl (0.6-1.2) L 09/06/23 Estimated GFR ( Amer) 144.2 ml/min 09/06/23 Estimated GFR (Non-Af Amer) 124.4 ml/min 09/06/23 BUN/Creatinine Ratio 43.8 (10-20) H 09/06/23 Glu 103 mg/dl (70-99(Fasting)) H 09/06/23 Ca 7.8 mg/dl (8.6-10.3) L 09/06/23 Phosphorus Level 3.6 mg/dl (2.5-4.9) 09/06/23 Total Bilirubin 0.4 mg/dl (0.2-1.0) 09/05/23 AST 14 U/L (13-39) 09/05/23 ALT 11 U/L (7-52) 09/05/23 Alkaline Phosphatase 30 U/L (34-104) L 09/05/23 TP 4.8 gm/dl (6.0-8.3) L 09/05/23 Albumin 2.7 gm/dl (3.4-5.0) L 09/05/23 Globulin 2.1 gm/dl (2.5-4.0) L 09/05/23 Albumin/Globulin Ratio 1.3 (0.9-2) 09/05/23 PG Care Time/CCT Total # of Minutes Spent Total Time Spent with Patient: Total time spent is greater than 50% in coordination of care (as documented) at patient's floor/unit and/or counseling patient: Coding Level of Care Code 46287 Post Operative Follow-Up Diagnoses Cecal volvulus K56.2
[2023-09-06] MEDS: CHLORASEPTIC (PHENOL) 1.4% SOLN 180 ML BTL MT PRN (13:07)
[2023-09-06 13:20] LABS: Hematocrit (blood only) 31.7 % (37.0-47.0); Mean Corpuscular Hemoglobin 33.2 pg (25.0-34.0); Mean Corpuscular Hgb Conc 34.7 g/dL (32.0-36.0); Mean Corpuscular Volume 95.8 fL (80.0-100.0); Mean Platelet Volume 8.9 fL (9.4-12.4); Platelet Count 270 K/uL (130-400); RDW Coefficient of Variation 10.7 % (11.5-14.5); RDW Standard Deviation 37.7 fL (36.4-46.3); Red Blood Count 3.31 M/uL (4.20-5.40); White Blood Count 7.62 K/ul (4.8-10.8)
--- NOTE | 2023-09-06 14:03 | Hospitalist Progress Note ---
Date of Service September 06, 2023 Assessment & Plan (1) Cecal volvulus: Plan: 37-year-old lady with PMH of multiple sclerosis, migraine, HLD, PTSD, mood disorder, endometriosis status post surgery, past tobacco abuse presented with lower abdominal pain, found to have UTI on urine analysis, discharged on cefdinir course for UTI. Presented back again with worsening abdominal discomfort and distention with subsequent emesis associated with chest pain and shortness of breath from abdominal pain. 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 Admitting CTAP suggestive of cecal/ascending colon volvulus. WBC elevated at presentation. General surgery on board. Status post exploratory laparotomy, application of ABThera wound VAC 09/01/23 Status post reexploration laparotomy, transverse colon resection, creation of ileocolonic anastomosis, abdominal wall closure 09/03/23. Leukocytosis resolved Continue zosyn to complete 5 days post op per surgeon Discussed with surgeon who noted that small blood is noted them bowel movement. Hemoglobin has remained stable. Continue clear liquid Monitor Left adnexal cyst: Incidental finding on admitting CTAP - There is a 6.2 cm cystic focus in the left adnexa, likely related to the left ovary. Inpatient pelvic USG , Needs to follow up with Gyne outpatient for this UTI: Urine culture grew Ecoli Will be covered with above listed antibiotics. Replete hypomagnesemia Other chronic medical conditions: Continue with/resume home meds as and when able. Multiple sclerosis, primary progressive -patient deferred restarting Ocrevus recommendation as per outpatient neurology note from last year. f/u w/ neuro on DC. HLD -not on maintenance treatment PTSD/mood disorder -not on maintenance medication Past tobacco abuse DVT prophylaxis - on heparin. Updated parents at bedside Patient mother Ms. Audra Buchanan, contact #[phone]. I spent a total of 45 minutes coordinating, documenting and providing care for this patient excluding time spent in performance of separately billed services Admission and Anticipated Discharge Date Admission Date: September 02, 2023 Subjective Patient seen and examined. RN reported that patient would have been still with a little bit of blood thinning overnight. Teaching Dietitian put patient n.p.o. and stopped the heparin subcu for DVT prophylaxis. Hb at the time was stable Patient reports only nausea with abdominal pain which usually occurs with movements. Otherwise reports surgical site pain is well-controlled. No vomiting. Denies any other complaints Physical Exam Constitutional: + well hydrated; no acute distress Eyes: PERRL, conjunctivae normal, anicteric sclerae ENMT: external ear and nose normal, oropharynx normal Respiratory: normal respiratory effort, lungs clear to auscultation Cardiovascular: Rate/Rhythm: regular rate and regular rhythm S1-S2 Gastrointestinal (Abdomen): Clean dressing over surgical site. Abdominal soft, normal bowel sounds Musculoskeletal: no cyanosis or clubbing, extremities motor strength 5/5 Neurologic: PERRL, EOMI, accommodation nl, no face palsy, no dysarthria Psychiatric: A+Ox3, euthymic affect Results & Data Results & Data Vital Signs (Past 12 Hours) Vital Signs Temp Pulse Pulse Resp BP BP BP 09/06/23 12:04 36.4 C L 50 L 12 115/51 L 09/06/23 08:04 36.6 C 09/06/23 08:00 36.6 C 54 L 12 120/69 09/06/23 06:00 16 121/71 09/06/23 06:00 57 L 19 09/06/23 05:00 54 L 15 09/06/23 04:00 36.7 C 51 L 14 121/66 09/06/23 04:00 51 L 15 09/06/23 03:00 49 L 16 Pulse Ox O2 Del Method 09/06/23 12:04 97 Room Air 09/06/23 08:04 09/06/23 08:00 98 Room Air 09/06/23 06:00 94 Room Air 09/06/23 06:00 09/06/23 05:00 95 Room Air 09/06/23 04:00 93 Room Air 09/06/23 04:00 09/06/23 03:00 Laboratory Results Abnormal lab results 09/05/23 09/06/23 09/06/23 Range/Units 21:01 03:49 12:54 RBC 3.31 L (4.20-5.40) M/uL Hgb 11.5 L 11.0 L (12.0-16.0) g/dl Hct 33.3 L 31.7 L (37.0-47.0) % RDW Coeff of Kristy 10.7 L (11.5-14.5) % MPV 8.9 L (9.4-12.4) fL Creatinine 0.48 L (0.6-1.2) mg/dl BUN/Creatinine Ratio 43.8 H (10-20) Glucose 103 H (70-99(Fasting)) mg/dl Calcium 7.8 L (8.6-10.3) mg/dl Magnesium 1.6 L (1.7-2.4) mg/dl
[2023-09-07 04:48] LABS: Hematocrit (blood only) 30.5 % (37.0-47.0); Hemoglobin 10.8 g/dl (12.0-16.0); Mean Corpuscular Hemoglobin 33.5 pg (25.0-34.0); Mean Corpuscular Hgb Conc 35.4 g/dL (32.0-36.0); Mean Corpuscular Volume 94.7 fL (80.0-100.0); Mean Platelet Volume 9.3 fL (9.4-12.4); Platelet Count 287 K/uL (130-400); RDW Coefficient of Variation 10.6 % (11.5-14.5); RDW Standard Deviation 36.6 fL (36.4-46.3); Red Blood Count 3.22 M/uL (4.20-5.40); White Blood Count 7.54 K/ul (4.8-10.8)
[2023-09-07 04:58] LABS: BUN Creatinine Ratio 33.3 (10-20); Calcium 7.5 mg/dl (8.6-10.3); Creatinine Clr Calc Pharmacy 142.1 ml/min; Est GFR (African American) 147.3 ml/min; Est GFR (Non-African American) 127.1 ml/min; Magnesium 1.9 mg/dl (1.7-2.4); Phosphorus 3.9 mg/dl (2.5-4.9); Potassium 3.2 mmol/L (3.5-5.1)
[2023-09-07] MEDS: POTASSIUM CHLORIDE CRTAB 20 MEQ TABCR PO STA (05:43)
[2023-09-07] MEDS: POTASSIUM CHLORIDE 20 MEQ/15 ML UDC PO STA (05:56)
--- NOTE | 2023-09-07 08:39 | Surgery Progress Note ---
Date of Service September 07, 2023 Assessment & Plan (1) Cecal volvulus: Plan: POD#4 abdominal re-exploration, creation of ileocolonic anastomosis, washout; POD# 6 ex lap, R hemicolectomy and abthera vac placement H/H Stable 10.8/30.5 VSS potassium low, can switch IV fluids to include K+ tolerating clears, advanced to full liquid , if tolerating maybe low fiber for dinner having BMs Admission and Anticipated Discharge Date Admission Date: September 02, 2023 Supervising Physician Co-Signing Physician Notes I personally saw and evaluated the patient with Chani AVELAR and agree with the assessment and plan 37 yo s/p right hemicolectomy for cecal volvulus, POD#4 anastomosis and closure Leukocytosis resolved Continue Zosyn for 5 day course post-operatively Advance to full liquids She is having BM's at this point PT/OT consults IS Lovenox for DVT prophylaxis If she continues to progress, plan would be advance to low fiber diet for dinner versus tomorrow with possible discharge tomorrow or Sunday Subjective sitting up bed having clears Denies n/v Incont. of bowel and bladder Review of Systems Constitutional: no fever and no chills Respiratory: no dyspnea Cardiovascular: no chest pain Gastrointestinal: + abdominal pain and + nausea; no vomiti ng Musculoskeletal: + muscle weakness Neurologic: no confusion Physical Exam Physical Exam: alert oriented Constitutional: cooperative and comfortable; no acute distress ENMT: external ear and nose normal, oropharynx normal Respiratory: normal respiratory effort and able to speak in complete sentences; no respiratory distress Cardiovascular: Rate/Rhythm: + bradycardic Gastrointestinal (Abdomen): Inspection/Auscultation: + abdomen distended and + abdominal surgical incision (CDI aba ) Percussion/Palpation: + abdomen tender and abdomen soft Neurologic: awake; not confused Psychiatric: A+Ox3, euthymic affect Results & Data Vital Signs (Past 12 Hours) Vital Signs Temp Pulse Pulse Resp BP BP BP 09/07/23 08:16 48 L 09/07/23 08:00 97.7 F 09/07/23 07:24 47 L 21 09/07/23 07:24 99/69 L 09/07/23 04:15 97.9 F 56 L 15 116/61 09/07/23 00:24 47 L 09/07/23 00:01 97.9 F 48 L 12 103/66 Pulse Ox O2 Del Method 09/07/23 08:16 09/07/23 08:00 09/07/23 07:24 98 Room Air 09/07/23 07:24 09/07/23 04:15 97 Room Air 09/07/23 00:24 09/07/23 00:01 94 Room Air PG Care Time/CCT Total # of Minutes Spent Total Time Spent with Patient: Total time spent is greater than 50% in coordination of care (as documented) at patient's floor/unit and/or counseling patient: Coding Level of Care Code 22416 Post Operative Follow-Up Diagnoses Cecal volvulus K56.2
--- NOTE | 2023-09-07 11:59 | Hospitalist Progress Note ---
Date of Service September 07, 2023 Assessment & Plan (1) Cecal volvulus: Plan: 37-year-old lady with PMH of multiple sclerosis, migraine, HLD, PTSD, mood disorder, endometriosis status post surgery, past tobacco abuse presented with lower abdominal pain, found to have UTI on urine analysis, discharged on cefdinir course for UTI. Presented back again with worsening abdominal discomfort and distention with subsequent emesis associated with chest pain and shortness of breath from abdominal pain. 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 Admitting CTAP suggestive of cecal/ascending colon volvulus. WBC elevated at presentation. General surgery on board. Status post exploratory laparotomy, application of ABThera wound VAC 09/01/23 Status post reexploration laparotomy, transverse colon resection, creation of ileocolonic anastomosis, abdominal wall closure 09/03/23. Leukocytosis resolved Continue zosyn to complete 5 days post op by tomorrow Hemoglobin has remained stable. Diet have been advanced to full liquid Surg plan to advance as tolerated Patient has some dietary exceptions. Discussed with RN/patient/mother. Ok to have family bring in food patient tolerates once diet is advanced as she reports certain foods induces an MS flare Monitor Left adnexal cyst: Incidental finding on admitting CTAP - There is a 6.2 cm cystic focus in the left adnexa, likely related to the left ovary. Inpatient pelvic USG , Needs to follow up with Gyne outpatient for this UTI: Urine culture grew Ecoli Will be covered with above listed antibiotics. Replete hypokalemia and monitor Has been sinus bradycardic on tele with HR in 40-50s Asymptomatic Improved to 60s with activity today Will get TTE Has been on stress dose steroid (hydrocortisone) started by ICU Will taper off Other chronic medical conditions: Continue with/resume home meds as and when able. Multiple sclerosis, primary progressive -patient deferred restarting Ocrevus recommendation as per outpatient neurology note from last year. f/u w/ neuro on DC. HLD -not on maintenance treatment PTSD/mood disorder -not on maintenance medication Past tobacco abuse DVT prophylaxis - Ambulate Updated parents at bedside Patient mother Ms. Audra Buchanan, contact #[phone]. I spent a total of 40 minutes coordinating, documenting and providing care for this patient excluding time spent in performance of separately billed services Admission and Anticipated Discharge Date Admission Date: September 02, 2023 Subjective Patient seen and examined. Reports feeling better today. Surgical site pain is controlled. Diet advance to full liquid diet by surgeon Having regular bowel movements. Reports some bowel movement are blood stained Physical Exam Constitutional: + well hydrated; no acute distress Eyes: PERRL, conjunctivae normal, anicteric sclerae ENMT: external ear and nose normal, oropharynx normal Respiratory: normal respiratory effort, lungs clear to auscultation Cardiovascular: Rate/Rhythm: regular rhythm and + bradycardic S1 S2 Gastrointestinal (Abdomen): Clean dressing over surgical site Soft, normal bowel sounds Musculoskeletal: no cyanosis or clubbing, extremities motor strength 5/5 Neurologic: PERRL, EOMI, accommodation nl, no face palsy, no dysarthria Psychiatric: A+Ox3, euthymic affect Results & Data Results & Data Vital Signs (Past 12 Hours) Vital Signs Temp Pulse Pulse Resp BP BP BP 09/07/23 11:28 36.6 C 52 L 17 111/70 09/07/23 08:16 48 L 09/07/23 08:00 36.5 C 09/07/23 07:24 47 L 21 09/07/23 07:24 99/69 L 09/07/23 04:15 36.6 C 56 L 15 116/61 09/07/23 00:24 47 L 09/07/23 00:01 36.6 C 48 L 12 103/66 Pulse Ox O2 Del Method 09/07/23 11:28 97 Room Air 09/07/23 08:16 09/07/23 08:00 09/07/23 07:24 98 Room Air 09/07/23 07:24 09/07/23 04:15 97 Room Air 09/07/23 00:24 09/07/23 00:01 94 Room Air Laboratory Results Abnormal lab results 09/07/23 Range/Units 04:12 RBC 3.22 L (4.20-5.40) M/uL Hgb 10.8 L (12.0-16.0) g/dl Hct 30.5 L (37.0-47.0) % RDW Coeff of Kristy 10.6 L (11.5-14.5) % MPV 9.3 L (9.4-12.4) fL Potassium 3.2 L (3.5-5.1) mmol/L Creatinine 0.45 L (0.6-1.2) mg/dl BUN/Creatinine Ratio 33.3 H (10-20) Glucose 112 H (70-99(Fasting)) mg/dl Calcium 7.5 L (8.6-10.3) mg/dl
--- NOTE | 2023-09-07 19:00 | XRay Report ---
XR chest 1V portable HISTORY: Review possible pleural effusion seen on echo COMPARISON: Chest 09/02/2023. Abdomen and pelvis CT 09/01/2023. FINDINGS: No pneumothorax. The cardiac silhouette is normal in size. No evidence for pulmonary edema. No acute fractures. Small bilateral pleural effusions. Hazy appearance to lung bases is likely due t o the layering pleural effusions. IMPRESSION: Interval development of small bilateral pleural effusions. ACT 112: Negative or not required by law. Electronically signed by: Lopez Camara M.D. 09/07/2023 6:59 PM
--- NOTE | 2023-09-07 22:01 | Electrocardiogram Report ---
Test Reason : Blood Pressure : / mmHG Vent. Rate : 045 BPM Atrial Rate : 045 BPM P-R Int : 114 ms QRS Dur : 088 ms QT Int : 476 ms P-R-T Axes : 041 051 048 degrees QTc Int : 411 ms Sinus bradycardia T wave abnormality, consider anterior ischemia Abnormal ECG When compared with ECG of 01-SEP-2023 23:36, Sinus rhythm has replaced Ectopic atrial rhythm Vent. rate has decreased BY 42 BPM Nonspecific T wave abnormality no longer evident in Inferior leads Inverted T waves have replaced nonspecific T wave abnormality in Anterior leads Nonspecific T wave abnormality no longer evident in Lateral leads Confirmed by Miguel Cunningham ([id number]) on 09/07/2023 10:01:38 PM Referred By: REFERRED SELF Confirmed By:Miguel Cunningham
[2023-09-08 04:43] LABS: BUN Creatinine Ratio 30.2 (10-20); Calcium 7.5 mg/dl (8.6-10.3); Creatinine Clr Calc Pharmacy 144.2 ml/min; Est GFR (African American) 149.5 ml/min; Magnesium 1.9 mg/dl (1.7-2.4); Phosphorus 3.5 mg/dl (2.5-4.9)
[2023-09-08] MEDS: POTASSIUM CHLORIDE CRTAB 20 MEQ TABCR PO STA ×3 (05:15→18:18)
[2023-09-08] MEDS: POTASSIUM CHLORIDE / WTR 10 MEQ/100 ML PLCT IV SCH (05:15)
[2023-09-08] MEDS: HYDROCORTISONE SOD 50 MG in SYRINGE 0 ML IV SCH (08:24)
--- NOTE | 2023-09-08 09:25 | Surgery Progress Note ---
Date of Service September 08, 2023 Assessment & Plan (1) H/O right hemicolectomy: Plan: Clinically doing well. She really wants to go home. The mother has some concerns about being able to care for the patient and wants to make sure the home health services are in place which is reasonable. Reviewed case management's note from this morning referral made for [facility]. From a surgical standpoint she could be discharged at any time Admission and Anticipated Discharge Date Admission Date: September 02, 2023 Subjective pt seen. feeling well. leon diet. wants to go home. Physical Exam Physical Exam: Alert and oriented no acute distress abdomen is soft nontender Results & Data Vital Signs (Past 12 Hours) Vital Signs Temp Pulse Pulse Resp BP Pulse Ox O2 Del Method 09/08/23 07:00 36.6 C 09/08/23 03:52 36.6 C 55 L 16 113/66 97 Room Air 09/08/23 00:44 48 L 09/07/23 23:29 36.6 C 69 14 118/75 97 Room Air PG Care Time/CCT Total # of Minutes Spent Total Time Spent with Patient: Total time spent is greater than 50% in coordination of care (as documented) at patient's floor/unit and/or counseling patient: Coding Level of Care Code 68994 Post Operative Follow-Up Diagnoses H/O right hemicolectomy Z90.49
--- NOTE | 2023-09-08 13:47 | Hospitalist Progress Note ---
Date of Service September 08, 2023 Assessment & Plan (1) Cecal volvulus: Plan: 37-year-old lady with PMH of multiple sclerosis, migraine, HLD, PTSD, mood disorder, endometriosis status post surgery, past tobacco abuse presented with lower abdominal pain, found to have UTI on urine analysis, discharged on cefdinir course for UTI. Presented back again with worsening abdominal discomfort and distention with subsequent emesis associated with chest pain and shortness of breath from abdominal pain. 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 Admitting CTAP suggestive of cecal/ascending colon volvulus. WBC elevated at presentation. General surgery on board. Status post exploratory laparotomy, application of ABThera wound VAC 09/01/23 Status post reexploration laparotomy, transverse colon resection, creation of ileocolonic anastomosis, abdominal wall closure 09/03/23. Leukocytosis resolved Complete zosyn today Hemoglobin has remained stable. Tolerating low fiber diet well Left adnexal cyst: Incidental finding on admitting CTAP - There is a 6.2 cm cystic focus in the left adnexa, likely related to the left ovary. Needs to follow up with Gyne outpatient for this UTI: Urine culture grew Ecoli Will be covered with above listed antibiotics. Replete hypokalemia and monitor Sinus bradycardic on tele with HR in 40-50s Asymptomatic TTE noted normal cardiac function. Small left pleural effusion CXR on 09/07/23 showed small bilateral pleural effusion On room air. No respiratory complaints IVF has been discontinued Has been on stress dose steroid (hydrocortisone) started by ICU Being tapered off Other chronic medical conditions: Continue with/resume home meds as and when able. Multiple sclerosis, primary progressive -patient deferred restarting Ocrevus recommendation as per outpatient neurology note from last year. HLD -not on maintenance treatment PTSD/mood disorder -not on maintenance medication Past tobacco abuse DVT prophylaxis - Ambulate Updated parents at bedside Patient and family prefer dc home with home services/PT CM working on home services prior to dc Patient mother Ms. Audra Buchanan, contact #[phone]. I spent a total of 40 minutes coordinating, documenting and providing care for this patient excluding time spent in performance of separately billed services Admission and Anticipated Discharge Date Admission Date: September 02, 2023 Subjective Patient seen and examined. Reports feeling better Reports minimal abdominal pain at surgical site. Tolerating diet well. Denies cough, chest pain or shortness of breath. Having bowel movements. Denies any dysuria, frequency or urgency, fevers or chills Physical Exam Constitutional: + well hydrated; no acute distress Eyes: PERRL, conjunctivae normal, anicteric sclerae ENMT: external ear and nose normal, oropharynx normal Respiratory: normal respiratory effort, lungs clear to auscultation Cardiovascular: Rate/Rhythm: regular rate and regular rhythm S1-S2 Gastrointestinal (Abdomen): Inspection/Auscultation: normal bowel sounds; abdomen not distended Clean dressing over surgical site Musculoskeletal: no cyanosis or clubbing, extremities motor strength 5/5 Trace pedal edema Neurologic: PERRL, EOMI, accommodation nl, no face palsy, no dysarthria Psychiatric: A+Ox3, euthymic affect Results & Data Results & Data Vital Signs (Past 12 Hours) Vital Signs Temp Pulse Resp BP Pulse Ox O2 Del Method 09/08/23 09:35 36.6 C 68 16 96/55 L 97 Room Air 09/08/23 07:00 36.6 C 09/08/23 03:52 36.6 C 55 L 16 113/66 97 Room Air Laboratory Results Abnormal lab results 09/07/23 09/08/23 Range/Units 14:17 04:09 Potassium 3.3 L 3.0 L (3.5-5.1) mmol/L Creatinine 0.43 L (0.6-1.2) mg/dl BUN/Creatinine Ratio 30.2 H (10-20) Calcium 7.5 L (8.6-10.3) mg/dl
[2023-09-09 06:53] LABS: Hematocrit (blood only) 31.5 % (37.0-47.0); Hemoglobin 11.4 g/dl (12.0-16.0); Mean Corpuscular Hemoglobin 33.7 pg (25.0-34.0); Mean Corpuscular Hgb Conc 36.2 g/dL (32.0-36.0); Mean Corpuscular Volume 93.2 fL (80.0-100.0); Mean Platelet Volume 9.1 fL (9.4-12.4); Platelet Count 378 K/uL (130-400); RDW Coefficient of Variation 11.2 % (11.5-14.5); RDW Standard Deviation 37.3 fL (36.4-46.3); Red Blood Count 3.38 M/uL (4.20-5.40); White Blood Count 8.67 K/ul (4.8-10.8)
[2023-09-09 07:20] LABS: Anion Gap 4 (3-11); BUN Creatinine Ratio 26.8 (10-20); Blood Urea Nitrogen 11 mg/dl (6-23); Calcium 7.9 mg/dl (8.6-10.3); Carbon Dioxide 24 mmol/L (21-32); Chloride 108 mmol/L (98-107); Creatinine Clr Calc Pharmacy 143.9 ml/min; Est GFR (African American) > 150.0 ml/min; Est GFR (Non-African American) 131.1 ml/min; Glucose 87 mg/dl (70-99(Fasting)); Magnesium 1.9 mg/dl (1.7-2.4); Phosphorus 2.9 mg/dl (2.5-4.9); Potassium 3.8 mmol/L (3.5-5.1); Sodium 136 mmol/L (136-145)
--- NOTE | 2023-09-09 08:53 | Surgery Progress Note ---
Date of Service September 09, 2023 Assessment & Plan (1) Cecal volvulus: Plan: s/p right hemicolectomy WBC 8.6, Hbg 11.4. Vitals are stable Pt feels well. tolerating diet. + flatus, was having BM's Incisions c/d/i, pain controlled Okay for discharge from our standpoint when cleared by medicine and home services in place Admission and Anticipated Discharge Date Admission Date: September 02, 2023 Subjective Patient reports feeling well. Tolerating a diet, no nausea/vomiting. + flatus. Last BM 2 days ago. No other complaints. Eager for discharge. Physical Exam Physical Exam: awake/alert, no distress Respiratory: normal respiratory effort Gastrointestinal (Abdomen): Inspection/Auscultation: + abdominal surgical incision (c/d/i with midline aba, no signs of infection or drainange) Percussion/Palpation: abdomen soft; abdomen nontender Results & Data Vital Signs (Past 12 Hours) Vital Signs Temp Pulse Pulse Resp BP BP Pulse Ox 09/09/23 08:00 74 09/09/23 07:54 60 20 117/74 96 09/09/23 07:48 09/09/23 02:54 98.1 F 60 15 119/70 98 09/08/23 22:57 97.7 F 54 L 15 115/67 97 09/08/23 22:00 51 L O2 Del Method 09/09/23 08:00 09/09/23 07:54 Room Air 09/09/23 07:48 Room Air 09/09/23 02:54 Room Air 09/08/23 22:57 Room Air 09/08/23 22:00 PG Care Time/CCT Total # of Minutes Spent Total Time Spent with Patient: Total time spent is greater than 50% in coordination of care (as documented) at patient's floor/unit and/or counseling patient: Coding Level of Care Code 88057 Post Operative Follow-Up Diagnoses Cecal volvulus K56.2
[2023-09-09] MEDS: POTASSIUM CHLORIDE CRTAB 20 MEQ TABCR PO SCH (09:25)
--- NOTE | 2023-09-09 10:58 | Hospitalist Progress Note ---
Date of Service September 09, 2023 Assessment & Plan (1) Cecal volvulus: Plan: 37-year-old lady with PMH of multiple sclerosis, migraine, HLD, PTSD, mood disorder, endometriosis status post surgery, past tobacco abuse presented with lower abdominal pain, found to have UTI on urine analysis, discharged on cefdinir course for UTI. Presented back again with worsening abdominal discomfort and distention with subsequent emesis associated with chest pain and shortness of breath from abdominal pain. 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 Admitting CTAP suggestive of cecal/ascending colon volvulus. WBC elevated at presentation. General surgery on board. Status post exploratory laparotomy, application of ABThera wound VAC 09/01/23 Status post reexploration laparotomy, transverse colon resection, creation of ileocolonic anastomosis, abdominal wall closure 09/03/23. Leukocytosis resolved Completed zosyn Hemoglobin has remained stable. Tolerating low fiber diet well Left adnexal cyst: Incidental finding on admitting CTAP - There is a 6.2 cm cystic focus in the left adnexa, likely related to the left ovary. Needs to follow up with Gyne outpatient for this UTI: Urine culture grew Ecoli Completed antibiotics Replete hypokalemia and monitor Sinus bradycardic on tele with HR in 40-50s Asymptomatic TTE noted normal cardiac function. Small left pleural effusion CXR on 09/07/23 showed small bilateral pleural effusion On room air. No respiratory complaints IVF has been discontinued Has been on stress dose steroid (hydrocortisone) started by ICU Being tapered off Other chronic medical conditions: Continue with/resume home meds as and when able. Multiple sclerosis, primary progressive -patient deferred restarting Ocrevus recommendation as per outpatient neurology note from last year. HLD -not on maintenance treatment PTSD/mood disorder -not on maintenance medication Past tobacco abuse DVT prophylaxis - Ambulate Patient and family prefer dc home with home services/PT CM working on home services prior to dc Patient mother Ms. Audra Buchanan, contact #[phone]. I spent a total of 35 minutes coordinating, documenting and providing care for this patient excluding time spent in performance of separately billed services Admission and Anticipated Discharge Date Admission Date: September 02, 2023 Subjective Patient seen and examined. Reports feeling better No new complaints Tolerating diet well Reports no BM yesterday but passing flatus Physical Exam Constitutional: + well hydrated; no acute distress Eyes: PERRL, conjunctivae normal, anicteric sclerae ENMT: external ear and nose normal, oropharynx normal Respiratory: normal respiratory effort, lungs clear to auscultation Cardiovascular: Rate/Rhythm: regular rate and regular rhythm S1 S2 Gastrointestinal (Abdomen): Inspection/Auscultation: normal bowel sounds; abdomen not distended Clean dressing over surgical site Musculoskeletal: no cyanosis or clubbing, extremities motor strength 5/5 Neurologic: PERRL, EOMI, accommodation nl, no face palsy, no dysarthria Psychiatric: A+Ox3, euthymic affect Results & Data Results & Data Vital Signs (Past 12 Hours) Vital Signs Temp Pulse Pulse Resp BP BP Pulse Ox 09/09/23 08:00 74 09/09/23 07:54 60 20 117/74 96 09/09/23 07:48 09/09/23 02:54 36.7 C 60 15 119/70 98 O2 Del Method 09/09/23 08:00 09/09/23 07:54 Room Air 09/09/23 07:48 Room Air 09/09/23 02:54 Room Air Laboratory Results Abnormal lab results 09/09/23 Range/Units 06:18 RBC 3.38 L (4.20-5.40) M/uL Hgb 11.4 L (12.0-16.0) g/dl Hct 31.5 L (37.0-47.0) % MCHC 36.2 H (32.0-36.0) g/dL RDW Coeff of Kristy 11.2 L (11.5-14.5) % MPV 9.1 L (9.4-12.4) fL Chloride 108 H (98-107) mmol/L Creatinine 0.41 L (0.6-1.2) mg/dl BUN/Creatinine Ratio 26.8 H (10-20) Calcium 7.9 L (8.6-10.3) mg/dl
[2023-09-10 08:32] LABS: Anion Gap 5 (3-11); BUN Creatinine Ratio 28.6 (10-20); Blood Urea Nitrogen 12 mg/dl (6-23); Calcium 8.1 mg/dl (8.6-10.3); Carbon Dioxide 27 mmol/L (21-32); Chloride 105 mmol/L (98-107); Est GFR (African American) > 150.0 ml/min; Glucose 87 mg/dl (70-99(Fasting)); Potassium 3.4 mmol/L (3.5-5.1); Sodium 137 mmol/L (136-145)
--- NOTE | 2023-09-10 09:23 | Surgery Progress Note ---
Date of Service September 10, 2023 Assessment & Plan (1) H/O right hemicolectomy: Plan: no surgical issues ok for d/c awaiting home health auth. Admission and Anticipated Discharge Date Admission Date: September 02, 2023 Subjective pt seen. feeling well. leon diet. no GI complaints. Physical Exam Physical Exam: alert. nad abd: soft. expected tenderness Results & Data Vital Signs (Past 12 Hours) Vital Signs Temp Pulse Pulse Resp BP Pulse Ox O2 Del Method 09/10/23 07:51 36.7 C 66 17 96/61 L 97 Room Air 09/10/23 07:36 56 L 09/10/23 07:28 Room Air 09/10/23 03:25 36.6 C 55 L 16 108/69 98 Room Air 09/10/23 00:10 36.7 C 54 L 20 116/67 100 Room Air 09/09/23 22:00 51 L PG Care Time/CCT Total # of Minutes Spent Total Time Spent with Patient: Total time spent is greater than 50% in coordination of care (as documented) at patient's floor/unit and/or counseling patient: Coding Level of Care Code 59882 Post Operative Follow-Up Diagnoses H/O right hemicolectomy Z90.49
[2023-09-10] MEDS ORDERED: SENNA 8.6 MG TAB PO PRN (09:44)
--- NOTE | 2023-09-10 13:12 | Discharge Summary ---
Date of Service September 10, 2023 Admission HPI Per Admitting Provider History obtained from patient, family, and records. Medical history significant for multiple sclerosis, migraine, hyperlipidemia, PTSD, mood disorder, endometriosis status post surgery, past tobacco abuse. Last night, patient noted achy lower abdominal pain with constipation and decreased urine output symptoms. Some nausea, no fever, no chills. Patient consulted [facility] this morning. Plain x-ray of the abdomen showed moderate stool burden without evidence of impaction. Nitrite positive urine noted. Patient discharged on cefdinir course for UTI. Worsening abdominal discomfort and distention at home with subsequent emesis. Chest pain and shortness of breath from abdominal pain as per patient. Patient returned to ER with family. IV Zosyn administered at the ER. Medical History as above Surgical History : Hysteroscopy, endometrial ablation, IUD removal Family History : Asthma, breast cancer, colon cancer, DM, lung cancer, Tourette syndrome, Parkinson's disease, stroke Personal/Social history : Past tobacco abuse, rare EtOH intake, disabled from electrocution injury Admission Exam Per Admitting Provider GENERAL: uncomfortable, anxious, tremulous, no respiratory distress SKIN: Normal color, warm HEENT: Bespectacled, [place] palpebral conjunctivae, no ptosis, dry buccal mucosa NECK : Supple, no tenderness CHEST : Decreased breath sounds, no tenderness HEART : RRR, no obvious murmurs ABDOMEN: Marked distention with right-sided abdominal tenderness EXTREMITIES : No LE swelling/tenderness, no other conspicuous deformities noted NEUROLOGIC : Coherent, no facial asymmetry, resting hand tremors, gait and stance not assessed Principal Diagnosis Cecal volvulus Status post right hemicolectomy Discharge Exam Constitutional + well hydrated; no acute distress Eyes PERRL, conjunctivae normal, anicteric sclerae ENMT external ear and nose normal, oropharynx normal Respiratory normal respiratory effort, lungs clear to auscultation Cardiovascular Rate/Rhythm: regular rate and regular rhythm S1 S2 Gastrointestinal (Abdomen) Inspection/Auscultation: normal bowel sounds; abdomen not distended Clean dressing over surgical site Musculoskeletal No pedal edema Neurologic PERRL, EOMI, accommodation nl, no face palsy, no dysarthria Psychiatric A+Ox3, euthymic affect Discharge Data Allergies Allergy/AdvReac Type Severity Reaction Status Date / Time Sulfa (Sulfonamide Allergy Severe Hives Verified 09/01/23 08:20 Antibiotics) gabapentin Allergy Intermediate Hives Verified 09/01/23 08:20 Influenza Virus Vaccines Allergy Intermediate Rash Verified 09/01/23 08:20 Consultations 09/01/23 23:15 Consult General Surgery Stat ED Decision to Admit Stat 09/02/23 03:42 Consult Sales Engineering Manager Routine Procedures Performed Operation Date: 09/03/23 08:20 Actual Procedures p Re-Exploratoration Laparotomy, Transverse Colon Resection, Creation of ileocolonic anastomosis, abdominal wall closure(Not Applicable) - Torres Jasso, Ordered Studies 09/01/23 21:08 CT abd pelvis IV con only Stat Hospital Course (1) Cecal volvulus: 37-year-old lady with PMH of multiple sclerosis, migraine, HLD, PTSD, mood disorder, endometriosis status post surgery, past tobacco abuse presented with lower abdominal pain, found to have UTI on urine analysis, discharged on cefdinir course for UTI. Presented back again with worsening abdominal discomfort and distention with subsequent emesis associated with chest pain and shortness of breath from abdominal pain. 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 Admitting CTAP suggestive of cecal/ascending colon volvulus. WBC elevated at presentation. Was evaluated by General surgery Status post exploratory laparotomy, application of ABThera wound VAC 09/01/23 Status post reexploration laparotomy, transverse colon resection, creation of ileocolonic anastomosis, abdominal wall closure 09/03/23. Leukocytosis resolved Completed zosyn Hemoglobin has remained stable. Tolerating low fiber diet well Left adnexal cyst: Incidental finding on admitting CTAP - There is a 6.2 cm cystic focus in the left adnexa, likely related to the left ovary. Needs to follow up with Gyne outpatient for this UTI: Urine culture grew Ecoli Completed antibiotics Hypokalemia Repleted Discharge on po potassium 20mEq daily PCP to recheck BMP on follow up Sinus bradycardic on tele with HR in 40-50s Asymptomatic TTE noted normal cardiac function. Small left pleural effusion CXR on 09/07/23 showed small bilateral pleural effusion On room air. No respiratory complaints Was on stress dose steroid (hydrocortisone) inpatient for hypotension Has been tapered off Ambulatory dysfunction Related to MS PT/OT eval noted Per conversation with patient, mother and CM; she is confined to single room Script given for hospital bed as patient's MS and ambulatory problems requires positioning of body in ways not feasible with ordinary bed, Script given for bedside commode with drop arm, patient is confined to single room, feature is necessary to facilitate transfering. CM arranged HH Other chronic medical conditions: Continue with/resume home meds as and when able. Multiple sclerosis, primary progressive -patient deferred restarting Ocrevus recommendation as per outpatient neurology note from last year. HLD -not on maintenance treatment PTSD/mood disorder -not on maintenance medication Past tobacco abuse Total Time Total Time Spent Total Time Spent (In Minutes): 45 Total Time Includes: Examination of the Patient, Discharge Planning, Medication Reconciliation and Other Discharge Plan Discharge Items Patient Disposition: Home - Home Health Services Reason For Visit: VOLVULUS, LOW BP Discharge Diagnosis: Cecal volvulus Status post right hemicolectomy Activity: Per Instructions section Lifting: No more than 10 pounds Bathing Comment: may shower; no soaking in tubs/pools x 2 weeks Exercise/Sports: Wait until after follow-up appointment Non-emergency contact: Primary Care Provider and Surgeon Call non-emergency contact if: you have any medication questions, your symptoms worsen, your pain is concerning for you, you have a fever, your temperature is above 101.5, your wound has increased redness, your wound has increased drainage and your wound pain has increased Follow-up/Referrals: Torres Jasso DO [Physician] - 09/20/23 1:00 pm () Brittany Eubanks PA-C [Physician Sh[employer] Cobbler] - (Date & Time 09/25/2023 11:20 AM Provider Brittany Eubanks PA-C Department Neurology [facility] ) Tal Thomas MD [Primary Care Provider] - (Date & Time 09/17/2023 10:40 AM Provider Tal Thomas MD Department [facility] ) Diet: Low Fiber Addtl Attending Provider Instructions: Ms Toure You came to the hospital with abdominal pain. You were evaluated and found to have cecal volvulus You were evaluated by Surgeon. You had exploratory Laparotomy and Right hemicolectomy on 09/02/23 and Re- Exploration Laparotomy, Transverse Colon Resection, Creation of ileocolonic anastomosis on 09/03/23. You are being discharged home with home health services. Please ensure follow up with your Family Doctor, Neurology and surgeon. Please ensure follow up with your Interactive Account Manager for further evaluation of cyst seen in CT scan as we discussed. You Family Doctor can repeat lab work on follow up to monitor your electrolytes Addtl Cosmetic Account Coordinator Provider Instructions: You have surgical aba in place that will be removed at your follow up appointment. Please call to schedule this appointment within 2 weeks from your surgery date Pending Studies at Discharge: Yes Studies:: surgical pathology Stand-Alone Forms: My [facility], Smoking Cessation Medications and DC Order Prescriptions: New potassium chloride 20 mEq Tablet,Er Particles/Crystals 20 meq PO QAM Qty: 14 0RF Continued Myrbetriq 50 mg tablet extended release 24 hr 50 mg PO DAILY Qty: 90 3RF digestive enzymes Tablet 1 tab PO DAILY omega-3 fatty acids [Super [place]-3] 1,000 mg capsule 1,000 mg PO DAILY magnesium gluconate [Mag-G] 27 mg magnesium (500 mg) tablet 27 mg PO BID zinc 100 mg Tablet 100 mg PO DAILY meclizine 12.5 mg Tablet 12.5 mg PO BID PRN (Reason: Nausea) Vitamin C 100 mg Tablet 100 mg PO DAILY docusate sodium [Colace] 100 mg Capsule 100 mg PO DAILY Rx Instructions: patient takes every other day cholecalciferol (vitamin D3) 100 mcg (4,000 unit) Capsule 1,000 unit PO DAILY ondansetron 4 mg tablet,disintegrating 4 mg PO Q12H PRN (Reason: nausea and vomiting) 3 Days Qty: 9 0RF Discontinued cefdinir 300 mg capsule 300 mg PO Q12H 7 Days Qty: 14 0RF Discharge Orders: Discharge Order (Routine); Ordered 09/10/23 Ordered By: Mary Woodruff Admission Data Admit Date/Time: 09/02/23 00:09 Attending Provider: Mary Woodruff I. Admit Provider: Carlos Garza Primary Care Provider: Tal Thomas I. Other Providers: Torres Jasso; Carlos Garza; Cy Cazares; Bryan Strickland; [facility],Home Health; [facility] Other Interventions: Discharge Summary Assessment (RN) Last Done: 09/10/23 13:21
== END 2023-09-10 15:40 | disposition home health service (06) | DRG 330 ==
LOC: ED 21:00 → OR 09-02 00:08 → SUATTDRO 09-02 00:09 → 1E 09-02 00:09 → OR 09-02 00:21 → 2S 09-08 15:47